=== PATIENT | male | born 1960 | race Two or more races ===

== ENCOUNTER → 2016-05-01 | Outpatient (CLI) | payer OTHER ==
[~2016-05-01] MED LIST: READI-CAT 2 (BARIUM SULF)(VANILLA SMOOTHIE) 450ML ONE
== END | disposition home or self-care (01) ==
LOC: Rad HDHVI 15:12
PROVIDERS: ATTEND Internal Medicine Cardiovascular Disease
DX: K80.20 Calculus of gallbladder without cholecystitis without obstruction (principal); K40.20 Bilateral inguinal hernia, without obstruction or gangrene, not specified as recurrent; K42.9 Umbilical hernia without obstruction or gangrene; I70.8 Atherosclerosis of other arteries; N40.0 Benign prostatic hyperplasia without lower urinary tract symptoms
CPT/HCPCS: 74176

== ENCOUNTER 2016-10-17 10:28 | Emergency (ER) | payer OTHER ==
[~2016-10-17] VITALS: Ht 170.2 cm; Wt 90.7 kg
[2016-10-17] MEDS ORDERED: IOHEXOL 300 MG/ML 100ML BOTTLE IJ ONE (12:23)
[2016-10-17] MEDS ORDERED: KETOROLAC TROMETH 30 MG/ML 1ML VIAL IV ONE (12:30)
[2016-10-17] MEDS: PROMETHAZINE HCL 25 MG/ML 1ML IV PRN ×2 (12:35→16:23)
[2016-10-17 13:12] LABS: Basophils # (auto) 0 uL; Basophils % (auto) 0.5 % (0.0-2.0); CONDITION Y; Eosinophils # (auto) 0.1 uL; Eosinophils % (auto) 1.2 % (0.0-7.0); Hematocrit 37.5 % (41.0-53.0); Hemoglobin 12.9 g/dL (13.5-17.5); Lymphocytes # (auto) 1.1 uL; Lymphocytes % (auto) 13.8 % (10.0-50.0); Mean Corpuscular Hemoglobin 30.3 pg (28.0-32.0); Mean Corpuscular Hgb Conc. 34.4 g/dL (32.0-36.0); Mean Corpuscular Volume 88.1 fL (80.0-100.0); Mean Platelet Volume 8.5 fL (7.4-10.4); Monocytes # (auto) 0.6 uL; Monocytes % (auto) 7.3 % (0.0-12.0); Neutrophils # (auto) 6.4 uL; Neutrophils % (auto) 77.2 % (37.0-80.0); Platelet Count (auto) 238 10^3/uL (140-450); Red Cell Distribution Width 14.7 % (11.6-16.0); White Blood Cell 8.3 10^3/uL (4.4-10.8)
[2016-10-17 13:40] LABS: Albumin 3.4 g/dL (3.4-5.0); BUN/Creatinine Ratio 20.2; Magnesium 2.3 mg/dL (1.6-2.6); Potassium 3.6 mmol/L (3.5-5.1)
[2016-10-17 13:42] LABS: Bilirubin, Total 0.5 mg/dL (0.2-1.0)
[2016-10-17 13:56] LABS: Urine Bilirubin Negative (Negative); Urine Blood 2+ /uL (Negative); Urine Color Yellow (Yellow); Urine Glucose Normal (Normal); Urine Ketone Negative (Negative); Urine Mucus FEW (None Seen); Urine Nitrite Negative (Negative); Urine RBC 152 /hpf (0 - 3); Urine Squamous Epithelial Cell FEW /hpf (<5); Urine Urobilinogen Normal (Negative)
[2016-10-17] MEDS ORDERED: cefTRIAXone 1GM/50ML D5W 50 ML IV ONE (15:30)
[2016-10-17 15:52] VITALS: BP 132/97
[2016-10-17] MEDS ORDERED: PROMETHAZINE HCL 25 MG/ML 1ML IM ONE (16:15)
[2016-10-17] MEDS ORDERED: NALBUPHINE HCL 10 MG/1ml INJECTION IV ONE (16:15)
== END 2016-10-17 16:25 | disposition short-term general hospital (02) ==
LOC: ER 10:28
DX: K80.20 Calculus of gallbladder without cholecystitis without obstruction (principal); N39.0 Urinary tract infection, site not specified; K66.1 Hemoperitoneum; E78.5 Hyperlipidemia, unspecified; I10 Essential (primary) hypertension; Z90.89 Acquired absence of other organs
CPT/HCPCS: 36415; 71020; 74177; 80053; 81001; 83690; 83735; 84443; 85025; 93005; 96365; 96372; 96375; 99285; J1885; J2300; J2550; Q9967

== ENCOUNTER 2017-01-18 18:51 | Emergency (ER) | payer OTHER ==
[~2017-01-18] VITALS: Ht 167.6 cm; Wt 77.1 kg
[2017-01-18] MEDS ORDERED: cloNIDine HCL 0.1 MG TAB PO ONE (19:15)
[2017-01-18] MEDS ORDERED: MORPHINE SULF INJ 2 MG/ML SYRINGE 1ML ONE (19:33)
[2017-01-18] MEDS ORDERED: ONDANSETRON HCL 4 MG/2 ML VIAL ONE (19:33)
[2017-01-18 19:57] LABS: Basophils # (auto) 0 uL; Basophils % (auto) 0.8 % (0.0-2.0); Eosinophils # (auto) 0.3 uL; Eosinophils % (auto) 5.3 % (0.0-7.0); Hematocrit 41.5 % (41.0-53.0); Hemoglobin 14.5 g/dL (13.5-17.5); Lymphocytes # (auto) 1.6 uL; Lymphocytes % (auto) 29.5 % (10.0-50.0); Mean Corpuscular Hemoglobin 30.4 pg (28.0-32.0); Mean Corpuscular Hgb Conc. 34.9 g/dL (32.0-36.0); Mean Corpuscular Volume 87.1 fL (80.0-100.0); Mean Platelet Volume 8.2 fL (6.9-10.8); Monocytes # (auto) 0.4 uL; Monocytes % (auto) 7.2 % (0.0-12.0); Neutrophils % (auto) 57.2 % (37.0-80.0); Nucleated Red Blood Cells % 0.1 %; Platelet Count (auto) 225 10^3/uL (140-450); Red Cell Distribution Width 14.2 % (11.8-14.3); White Blood Cell 5.3 10^3/uL (4.4-10.8)
[2017-01-18 20:00] LABS: Albumin 3.5 g/dL (3.4-5.0); Anion Gap 6 (5-15); Aspartate Aminotransferase 10 U/L (15-37); BUN/Creatinine Ratio 15.2; Blood Urea Nitrogen 15 mg/dL (7-18); Calcium 8.3 mg/dL (8.5-10.1); Carbon Dioxide 26 mmol/L (21-32); Chloride 108 mmol/L (98-107); GFR African American 101 mL/min; GFR Non-African American 83 mL/min; Glucose 99 mg/dL (74-106); Magnesium 2.1 mg/dL (1.6-2.6); Potassium 3.6 mmol/L (3.5-5.1); Sodium 140 mmol/L (136-145)
[2017-01-18] MEDS ORDERED: ONDANSETRON HCL 4 MG/2 ML VIAL IV ONE (20:00)
[2017-01-18] MEDS ORDERED: MORPHINE SULF INJ 2 MG/ML SYRINGE 1ML IV ONE (20:00)
[2017-01-18 20:05] LABS: Alkaline Phosphatase 69 U/L (45-117); Bilirubin, Total 0.3 mg/dL (0.2-1.0); Total Protein 6.7 g/dL (6.4-8.2)
[2017-01-18 20:34] LABS: B-Type Natriuretic Peptide 29.33 pg/mL (0-100)
[2017-01-18 20:41] LABS: Temperature: 22.4 C (20.0-25.0)
[2017-01-18 23:56] VITALS: BP 147/97
== END 2017-01-18 23:25 | disposition home or self-care (01) ==
LOC: ER 18:54
DX: R07.89 Other chest pain (principal); M47.892 Other spondylosis, cervical region; G45.9 Transient cerebral ischemic attack, unspecified; I25.2 Old myocardial infarction; I10 Essential (primary) hypertension; E78.5 Hyperlipidemia, unspecified; Z90.89 Acquired absence of other organs; Z98.61 Coronary angioplasty status
CPT/HCPCS: 36415; 71010; 72125; 73200; 80053; 83735; 83880; 84443; 84484; 85025; 93005; 96374; 96375; 99285; J2270; J2405

== ENCOUNTER → 2017-04-10 | Outpatient (CLI) | payer OTHER ==
[~2017-04-10] VITALS: Ht 170.2 cm; Wt 95.3 kg
== END | disposition home or self-care (01) ==
LOC: Rad HDHVI 10:09
PROVIDERS: ATTEND Internal Medicine Cardiovascular Disease
DX: I10 Essential (primary) hypertension (principal); E78.00 Pure hypercholesterolemia, unspecified; I62.9 Nontraumatic intracranial hemorrhage, unspecified; I21.9 Acute myocardial infarction, unspecified; R42 Dizziness and giddiness; M75.52 Bursitis of left shoulder
CPT/HCPCS: 78452; 93017; 96374; A9500

== ENCOUNTER → 2017-05-07 | Outpatient (CLI) | payer OTHER | END | disposition home or self-care (01) | LOC: Rad HDHVI 13:54 | PROVIDERS: ATTEND Internal Medicine Cardiovascular Disease | DX: I67.2 Cerebral atherosclerosis (principal); I67.82 Cerebral ischemia | CPT/HCPCS: 70450 ==

== ENCOUNTER → 2017-06-12 | Outpatient (CLI) | payer OTHER ==
[~2017-06-12] VITALS: Ht 30.5 cm; Wt 95.3 kg
[~2017-06-12] MED LIST changes: +ASPI-498 PO; +BENA40TA7 PO; +CLON0.1T PO; +HYDR-4683 PO; +LABE200T18 PO; -READI-CAT 2 (BARIUM SULF)(VANILLA SMOOTHIE) 450ML ONE; +SIMV-13 PO; +TAMS0.4C36 PO; +cloNIDine HCL 0.1 MG TAB ONE; +cloNIDine HCL 0.1 MG TAB PO ONE
[2017-06-12 08:50] VITALS: BP 151/107
[2017-06-12 10:15] VITALS: BP 142/97
[2017-06-12 12:15] LABS: Basophils # (auto) 0.1 uL; Basophils % (auto) 1.2 % (0.0-2.0); Eosinophils # (auto) 0 uL; Eosinophils % (auto) 0.7 % (0.0-7.0); Hematocrit 43.1 % (41.0-53.0); Hemoglobin 14.5 g/dL (13.5-17.5); Lymphocytes # (auto) 1.1 uL; Lymphocytes % (auto) 17.1 % (10.0-50.0); Mean Corpuscular Hemoglobin 29.9 pg (28.0-32.0); Mean Corpuscular Hgb Conc. 33.7 g/dL (32.0-36.0); Mean Corpuscular Volume 88.5 fL (80.0-100.0); Monocytes # (auto) 0.4 uL; Monocytes % (auto) 6.6 % (0.0-12.0); Neutrophils # (auto) 4.8 uL; Neutrophils % (auto) 74.4 % (37.0-80.0); Nucleated Red Blood Cells % 0.3 %; Platelet Count (auto) 213 10^3/uL (140-450); Red Blood Cells 4.87 10^6/uL (4.5-5.90); Red Cell Distribution Width 14.4 % (11.8-14.3); White Blood Cell 6.4 10^3/uL (4.4-10.8)
[2017-06-12 12:30] LABS: Calcium 8.4 mg/dL (8.5-10.1); INR 0.95 (0.9-1.15); Partial Thromboplastin Time 26.6 sec (22.64-33.71); Potassium 3.8 mmol/L (3.5-5.1); Prothrombin Time 10.4 sec (9.37-12.3)
== END | disposition home or self-care (01) ==
LOC: Rad HDHVI 08:38
PROVIDERS: ATTEND Internal Medicine Cardiovascular Disease
DX: Z01.818 Encounter for other preprocedural examination (principal); I10 Essential (primary) hypertension; E78.5 Hyperlipidemia, unspecified; E78.00 Pure hypercholesterolemia, unspecified
CPT/HCPCS: 36415; 71046; 80048; 85025; 85610; 85730; 93005; G0463

== ENCOUNTER 2017-06-18 11:24 | Day surgery (SDC) | payer OTHER ==
[~2017-06-18] VITALS: Ht 170.2 cm; Wt 95.4 kg
[~2017-06-18 11:24] MED LIST changes: -cloNIDine HCL 0.1 MG TAB ONE; -cloNIDine HCL 0.1 MG TAB PO ONE
[2017-06-18] MEDS ORDERED: IOHEXOL 350 MG/ML 100ML IJ ONE ×2 (12:07→13:32)
[2017-06-18] MEDS ORDERED: LIDOCAINE 2%HCL (LOCAL ANESTH.) INJ 20ML MDV ONE ×2 (12:07→13:33)
[2017-06-18] MEDS ORDERED: ANGIOMAX 250 MG VIAL IV ONE (13:06)
[2017-06-18] MEDS ORDERED: fentaNYL CITRATE 100 MCG/2 ML VL ONE (13:07)
[2017-06-18] MEDS ORDERED: SODIUM CHL 0.9% 0 ML ONE (13:07)
[2017-06-18] MEDS ORDERED: MIDAZOLAM HCL 1MG/1ML-2 ML VIAL ONE (13:07)
== END 2017-06-18 18:10 | disposition home or self-care (01) ==
LOC: CATH 11:24
PROVIDERS: ATTEND Internal Medicine Cardiovascular Disease
DX: I25.10 Atherosclerotic heart disease of native coronary artery without angina pectoris (principal); R94.39 Abnormal result of other cardiovascular function study; E66.9 Obesity, unspecified; Z68.32 Body mass index [BMI] 32.0-32.9, adult; I10 Essential (primary) hypertension; I25.2 Old myocardial infarction; Z87.891 Personal history of nicotine dependence
CPT/HCPCS: 93458; C1760; C1894; J1644; J2250; J3010; J7030; Q9967; 99152

== ENCOUNTER → 2018-12-29 | Outpatient (CLI) | payer OTHER ==
[~2018-12-29] MED LIST changes: -HYDR-4683 PO; +HYDR-4833 PO
== END | disposition home or self-care (01) ==
LOC: Rad HDHVI 13:44
PROVIDERS: ATTEND Internal Medicine Cardiovascular Disease
DX: I20.0 Unstable angina (principal); R42 Dizziness and giddiness; I10 Essential (primary) hypertension; I25.2 Old myocardial infarction; E78.5 Hyperlipidemia, unspecified; M50.30 Other cervical disc degeneration, unspecified cervical region; Z98.61 Coronary angioplasty status
CPT/HCPCS: 93306

== ENCOUNTER → 2019-06-29 | Outpatient (CLI) | payer OTHER ==
[~2019-06-29] MED LIST changes: +ATOR40TA52 PO; +CLOP75TA41 PO; +LISI-706 PO; +NAPR220C PO
[2019-06-29 08:15] VITALS: BP 128/88
[2019-06-29 08:52] VITALS: BP 136/86
[2019-06-29 12:01] LABS: Basophils # (auto) 0.1 10 ^3/uL (0-0.2); Basophils % (auto) 1.4 % (0.0-2.0); Eosinophils # (auto) 0.3 10 ^3/uL (0-0.8); Eosinophils % (auto) 7.2 % (0.0-7.0); Hematocrit 42.8 % (41.0-53.0); Hemoglobin 14.4 g/dL (13.5-17.5); Lymphocytes % (auto) 24.6 % (10.0-50.0); Mean Corpuscular Hemoglobin 29.8 pg (28.0-32.0); Mean Corpuscular Hgb Conc. 33.7 g/dL (32.0-36.0); Mean Corpuscular Volume 88.4 fL (80.0-100.0); Monocytes # (auto) 0.3 10 ^3/uL (0-1.3); Monocytes % (auto) 8.2 % (0.0-12.0); Neutrophils # (auto) 2.4 10 ^3/uL (1.6-8.6); Neutrophils % (auto) 58.6 % (37.0-80.0); Nucleated Red Blood Cells % 0.4 %; Platelet Count (auto) 231 10^3/uL (140-450); Red Blood Cells 4.84 10^6/uL (4.5-5.90); Red Cell Distribution Width 14.5 % (11.8-14.3); White Blood Cell 4.2 10^3/uL (4.4-10.8)
[2019-06-29 12:08] LABS: Calcium 8.8 mg/dL (8.5-10.1); INR 0.98 (0.9-1.15); Partial Thromboplastin Time 26.3 sec (23.64-32.05); Potassium 3.5 mmol/L (3.5-5.1)
== END | disposition home or self-care (01) ==
LOC: Rad HDHVI 08:06
PROVIDERS: ATTEND Internal Medicine Cardiovascular Disease
DX: Z01.812 Encounter for preprocedural laboratory examination (principal); I70.0 Atherosclerosis of aorta; I20.0 Unstable angina; I25.10 Atherosclerotic heart disease of native coronary artery without angina pectoris; I21.3 ST elevation (STEMI) myocardial infarction of unspecified site
CPT/HCPCS: 36415; 71046; 80048; 85025; 85610; 85730; 93005; G0463

== ENCOUNTER 2019-07-02 08:45 | Inpatient (IN) | payer OTHER ==
[~2019-07-02] VITALS: Ht 170.2 cm; Wt 104.0 kg
[~2019-07-02 08:45] MED LIST changes: -ASPI-498 PO; -BENA40TA7 PO; -HYDR-4833 PO; -SIMV-13 PO
[2019-07-02] MEDS ORDERED: fentaNYL CITRATE 100 MCG/2 ML VL ONE ×2 (10:07→11:30)
[2019-07-02] MEDS ORDERED: ANGIOMAX 250 MG VIAL IV ONE (10:07)
[2019-07-02] MEDS ORDERED: MIDAZOLAM HCL 1MG/1ML-2 ML VIAL ONE (10:08)
[2019-07-02] MEDS ORDERED: SODIUM CHL 0.9% 50 ML ONE (10:08)
[2019-07-02] MEDS ORDERED: IOHEXOL 350 MG/ML 100ML IJ ONE (10:08)
[2019-07-02] MEDS ORDERED: LIDOCAINE 2%HCL (LOCAL ANESTH.) INJ 20ML MDV ONE (10:08)
[2019-07-02] MEDS ORDERED: ASPirin 325 MG TAB ONE (11:19)
[2019-07-02] MEDS ORDERED: CLOPIDOGREL BISULFATE 75 MG TAB ONE (11:19)
[2019-07-02] MEDS ORDERED: cloNIDine HCL 0.1 MG TAB PO PRN (12:30)
[2019-07-02] MEDS ORDERED: ONDANSETRON HCL 4 MG/2 ML VIAL IV PRN (12:30)
[2019-07-02] MEDS ORDERED: HYDROcodone-ACET 5/325MG TAB PO PRN (12:30)
[2019-07-02] MEDS ORDERED: ACETAMINOPHEN 500 MG TAB PO PRN (12:30)
[2019-07-02] MEDS ORDERED: MORPHINE SULF INJ 2 MG/ML SYRINGE 1ML IV PRN (12:30)
[2019-07-02] MEDS ORDERED: NITROGLYCERIN 0.4 MG SL TAB SL PRN (12:30)
[2019-07-02 14:30] VITALS: BP 137/80
--- NOTE | 2019-07-02 15:45 | NUR ---
Patient Admitted Received the patient from the Petroleum Inspector today at approximately 1315hrs. The patient is S/P Left Heart Cath, site at the Right groin. The patient arrived on a gurney lying flat the whole time. Received the report on the patient, he was do to sit up at 1330hrs. Check the groin before and after sitting him up, dressing clean, dry, intact. No pain noted. Completed the admission assessment. Will continue to monitor.
[2019-07-02 16:59] VITALS: BP 132/73
[2019-07-02] MEDS ORDERED: TAMSULOSIN HYDROCHLORIDE 0.4 MG CAP PO SCH (18:00)
--- NOTE | 2019-07-02 19:30 | NUR ---
Opening Shift Note Assumed care of patient, awake and alert x4. No S/S of distress/SOB or pain. Dressing to right groin is C/D/I, area is soft, no S/S of hematoma noted. Instructed on POC and to call for assist PRN. All questions and concerns answered. Call light is within reach, side rails up x2, bed is in the lowest position, will continue to monitor for changes Q1hr and PRN.
[2019-07-02 22:00] VITALS: BP 135/86
[2019-07-02] MEDS ORDERED: ATORVASTATIN 20 MG TAB PO SCH (22:00)
[2019-07-02] MEDS: LABETALOL HCL 200 MG TAB PO SCH (22:32)
[2019-07-03 05:00] VITALS: BP 130/76
--- NOTE | 2019-07-03 07:30 | NUR ---
Opening Shift Note Assumed care of patient, awake and alert. No S/S of distress/SOB or pain. Instructed on POC and to call for assist PRN, will continue to monitor for changes Q1hr and PRN.
[2019-07-03 08:00] VITALS: BP 137/77
[2019-07-03 08:36] VITALS: BP 137/77
[2019-07-03 09:41] VITALS: BP 128/80
[2019-07-03] MEDS: LABETALOL HCL 200 MG TAB PO SCH (09:54)
[2019-07-03] MEDS ORDERED: CLOPIDOGREL BISULFATE 75 MG TAB PO SCH (10:00)
[2019-07-03] MEDS ORDERED: PATIENTS OWN MEDICATION (Lisinopril & Hydrochlorothiazi (Zestoretic 20-12.5 mg) 1 TAB) PO SCH (10:00)
[2019-07-03] MEDS ORDERED: LISINOPRIL 20 MG TAB PO SCH (10:00)
[2019-07-03] MEDS ORDERED: ASPirin-EC 81 mg tab PO SCH (10:00)
[2019-07-03] MEDS ORDERED: HCTZ 25 MG TAB PO SCH (10:00)
--- NOTE | 2019-07-03 12:15 | NUR ---
Discharge instructions given as ordered. Encourage to follow up with PMD as instructed. All questions and concerns addressed. Patient verbalized understanding. Home medications held in Pharmacy returned to patient. IV removed with catheter intact, pressure dressing applied. Telemetry unit returned to ICU. Patient ambulated to vehicle with all personal belongings. No distress noted at time of departure.
[2019-07-03 12:47] VITALS: BP 155/94
== END 2019-07-03 12:15 | disposition home or self-care (01) | DRG 247 ==
LOC: CATH 08:45 → TELE-CENTR 08:46
PROVIDERS: ADMIT Internal Medicine Cardiovascular Disease; ATTEND Internal Medicine Cardiovascular Disease
PROC: 027034Z Dilation of Coronary Artery, One Artery with Drug-eluting Intraluminal Device, Percutaneous Approach (ICD-10-PCS; principal; 2019-07-02)
PROC: B240ZZ3 Ultrasonography of Single Coronary Artery, Intravascular (ICD-10-PCS; 2019-07-02)
PROC: 4A023N7 Measurement of Cardiac Sampling and Pressure, Left Heart, Percutaneous Approach (ICD-10-PCS; 2019-07-02)
PROC: B211YZZ Fluoroscopy of Multiple Coronary Arteries using Other Contrast (ICD-10-PCS; 2019-07-02)
PROC: B215YZZ Fluoroscopy of Left Heart using Other Contrast (ICD-10-PCS; 2019-07-02)
DX: I25.10 Atherosclerotic heart disease of native coronary artery without angina pectoris (principal); E78.5 Hyperlipidemia, unspecified; I10 Essential (primary) hypertension; Z82.3 Family history of stroke; Z98.890 Other specified postprocedural states; I25.2 Old myocardial infarction; Z82.49 Family history of ischemic heart disease and other diseases of the circulatory system; Z11.59 Encounter for screening for other viral diseases
CPT/HCPCS: 87635; 92928; 92978; 93005; 93458; 99152; 99153; C1874; G0378; J2250

== ENCOUNTER → 2020-01-06 | Outpatient (CLI) | payer OTHER ==
[2020-01-06 12:05] LABS: Basophils # (auto) 0.1 10 ^3/uL (0-0.2); Eosinophils # (auto) 0.1 10 ^3/uL (0-0.8); Eosinophils % (auto) 2.8 % (0.0-7.0); Hematocrit 39.2 % (41.0-53.0); Hemoglobin 13.4 g/dL (13.5-17.5); Lymphocytes # (auto) 1.1 10 ^3/uL (0.4-5.4); Mean Corpuscular Hemoglobin 29.8 pg (28.0-32.0); Mean Corpuscular Hgb Conc. 34.1 g/dL (32.0-36.0); Mean Corpuscular Volume 87.4 fL (80.0-100.0); Monocytes # (auto) 0.4 10 ^3/uL (0-1.3); Neutrophils # (auto) 3.4 10 ^3/uL (1.6-8.6); Neutrophils % (auto) 67.2 % (37.0-80.0); Nucleated Red Blood Cells % 0.1 %; Platelet Count (auto) 246 10^3/uL (140-450); Red Blood Cells 4.49 10^6/uL (4.5-5.90); Red Cell Distribution Width 15.2 % (11.8-14.3)
[2020-01-06 12:10] LABS: Urine Blood Negative /uL (Negative); Urine Specific Gravity 1.019 (1.001-1.035)
[2020-01-06 12:24] LABS: Albumin 3.9 g/dL (3.4-5.0); Potassium 3.8 mmol/L (3.5-5.1)
[2020-01-06 12:25] LABS: Free T4 (Free Thyroxine) 0.91 ng/dL (0.89-1.76); Prostate Specific Antigen 2.59 ng/mL (0.0-4.0)
[2020-01-06 12:30] LABS: BUN/Creatinine Ratio 14.4; Bilirubin, Total 0.7 mg/dL (0.2-1.0); Total Protein 6.6 g/dL (6.4-8.2)
== END | disposition home or self-care (01) ==
LOC: LAB 08:18
PROVIDERS: ATTEND Internal Medicine Cardiovascular Disease
DX: C61 Malignant neoplasm of prostate (principal); D51.3 Other dietary vitamin B12 deficiency anemia; I10 Essential (primary) hypertension; E11.9 Type 2 diabetes mellitus without complications; E55.9 Vitamin D deficiency, unspecified; D64.9 Anemia, unspecified; R00.2 Palpitations; R53.1 Weakness; R30.0 Dysuria
CPT/HCPCS: 36415; 80053; 80061; 81003; 82306; 82607; 83036; 84153; 84403; 84439; 84443; 85025

== ENCOUNTER → 2020-01-20 | Outpatient (CLI) | payer OTHER | END | disposition home or self-care (01) | LOC: XY 07:17 | PROVIDERS: ATTEND Internal Medicine Gastroenterology | DX: R68.81 Early satiety (principal); R10.9 Unspecified abdominal pain | CPT/HCPCS: 78264; A9541 ==

== ENCOUNTER → 2021-01-20 | Outpatient (CLI) | payer OTHER ==
[~2021-01-20] MED LIST changes: -CLOP75TA41 PO; +CLOP75TA70 PO; -LABE200T18 PO; +LABE200T7 PO
== END | disposition home or self-care (01) ==
LOC: Rad HDHVI 08:07
PROVIDERS: ATTEND Internal Medicine Cardiovascular Disease
DX: E78.5 Hyperlipidemia, unspecified (principal); R06.02 Shortness of breath
CPT/HCPCS: 93306

== ENCOUNTER → 2021-02-02 | Outpatient (CLI) | payer OTHER ==
[~2021-02-02] VITALS: Ht 170.2 cm; Wt 97.5 kg
== END | disposition home or self-care (01) ==
LOC: Rad HDHVI 08:01
PROVIDERS: ATTEND Internal Medicine Cardiovascular Disease
DX: I25.10 Atherosclerotic heart disease of native coronary artery without angina pectoris (principal); I10 Essential (primary) hypertension; R00.2 Palpitations; E78.5 Hyperlipidemia, unspecified; R06.02 Shortness of breath; I25.2 Old myocardial infarction
CPT/HCPCS: 78452; 93017; 96374; A9500

== ENCOUNTER → 2021-02-20 | Outpatient (CLI) | payer OTHER ==
[2021-02-20 11:28] LABS: Basophils # (auto) 0.1 10 ^3/uL (0-0.2); Basophils % (auto) 0.9 % (0.0-2.0); Eosinophils # (auto) 0.1 10 ^3/uL (0-0.8); Eosinophils % (auto) 2.1 % (0.0-7.0); Hematocrit 44.2 % (41.0-53.0); Lymphocytes # (auto) 0.8 10 ^3/uL (0.4-5.4); Lymphocytes % (auto) 14.6 % (10.0-50.0); Mean Corpuscular Hemoglobin 29.1 pg (28.0-32.0); Mean Corpuscular Volume 85.6 fL (80.0-100.0); Monocytes # (auto) 0.4 10 ^3/uL (0-1.3); Neutrophils # (auto) 4.1 10 ^3/uL (1.6-8.6); Neutrophils % (auto) 74.4 % (37.0-80.0); Nucleated Red Blood Cells % 0.1 %; Red Blood Cells 5.17 10^6/uL (4.5-5.90); Red Cell Distribution Width 14.4 % (11.8-14.3); White Blood Cell 5.6 10^3/uL (4.4-10.8)
[2021-02-20 11:30] LABS: Urine Blood Negative /uL (Negative); Urine Specific Gravity 1.024 (1.001-1.035)
[2021-02-20 11:41] LABS: Albumin 4.1 g/dL (3.4-5.0); Potassium 3.8 mmol/L (3.5-5.1)
[2021-02-20 11:47] LABS: BUN/Creatinine Ratio 15.2; Bilirubin, Total 0.7 mg/dL (0.2-1.0)
[2021-02-20 11:49] LABS: Free T4 (Free Thyroxine) 1.18 ng/dL (0.89-1.76); Prostate Specific Antigen 2.36 ng/mL (0.0-4.0)
== END | disposition home or self-care (01) ==
LOC: LAB 09:08
PROVIDERS: ATTEND Internal Medicine Cardiovascular Disease
DX: E11.9 Type 2 diabetes mellitus without complications (principal); D51.3 Other dietary vitamin B12 deficiency anemia; D64.9 Anemia, unspecified; E55.9 Vitamin D deficiency, unspecified; I10 Essential (primary) hypertension; R00.2 Palpitations; R53.1 Weakness; R30.0 Dysuria; C61 Malignant neoplasm of prostate
CPT/HCPCS: 36415; 80053; 80061; 81003; 82306; 82607; 83036; 84153; 84403; 84439; 84443; 85025

== ENCOUNTER → 2021-09-29 | Outpatient (CLI) | payer OTHER ==
[~2021-09-29] MED LIST changes: +READI-CAT 2 (BARIUM SULF)(VANILLA SMOOTHIE) 450ML ONE
== END | disposition home or self-care (01) ==
LOC: Rad HDHVI 09:36
PROVIDERS: ATTEND Internal Medicine Cardiovascular Disease
DX: M25.512 Pain in left shoulder (principal); I20.9 Angina pectoris, unspecified; Z95.5 Presence of coronary angioplasty implant and graft; Z82.49 Family history of ischemic heart disease and other diseases of the circulatory system
CPT/HCPCS: 73200

== ENCOUNTER → 2022-01-01 | Outpatient (CLI) | payer OTHER ==
[~2022-01-01] MED LIST changes: -READI-CAT 2 (BARIUM SULF)(VANILLA SMOOTHIE) 450ML ONE
[2022-01-01 16:37] LABS: Basophils # (auto) 0.1 10 ^3/uL (0-0.2); Eosinophils # (auto) 0.3 10 ^3/uL (0-0.8); Eosinophils % (auto) 5.3 % (0.0-7.0); Hematocrit 43.1 % (41.0-53.0); Hemoglobin 14.7 g/dL (13.5-17.5); Lymphocytes # (auto) 1.4 10 ^3/uL (0.4-5.4); Lymphocytes % (auto) 24.1 % (10.0-50.0); Mean Corpuscular Hemoglobin 29.3 pg (28.0-32.0); Mean Corpuscular Hgb Conc. 34.2 g/dL (32.0-36.0); Mean Corpuscular Volume 85.9 fL (80.0-100.0); Monocytes # (auto) 0.4 10 ^3/uL (0-1.3); Monocytes % (auto) 7.7 % (0.0-12.0); Neutrophils # (auto) 3.5 10 ^3/uL (1.6-8.6); Neutrophils % (auto) 61.9 % (37.0-80.0); Nucleated Red Blood Cells % 0.1 %; Red Blood Cells 5.02 10^6/uL (4.5-5.90); Red Cell Distribution Width 14.7 % (11.8-14.3); White Blood Cell 5.6 10^3/uL (4.4-10.8)
== END | disposition home or self-care (01) ==
LOC: LAB 15:28
PROVIDERS: ATTEND Internal Medicine Cardiovascular Disease
DX: D64.9 Anemia, unspecified (principal)
CPT/HCPCS: 36415; 85025

== ENCOUNTER → 2022-05-25 | Outpatient (CLI) | payer OTHER ==
[~2022-05-25] VITALS: Ht 170.2 cm; Wt 97.5 kg
== END | disposition home or self-care (01) ==
LOC: Rad HDHVI 08:09
PROVIDERS: ATTEND Internal Medicine Cardiovascular Disease
DX: Z01.810 Encounter for preprocedural cardiovascular examination (principal); I11.0 Hypertensive heart disease with heart failure; I50.23 Acute on chronic systolic (congestive) heart failure; I25.10 Atherosclerotic heart disease of native coronary artery without angina pectoris; I25.2 Old myocardial infarction; R06.02 Shortness of breath; E78.00 Pure hypercholesterolemia, unspecified
CPT/HCPCS: 78452; 93017; 96374; A9500

== ENCOUNTER → 2022-07-06 | Outpatient (CLI) | payer OTHER | END | disposition home or self-care (01) | LOC: Rad HDHVI 10:13 | PROVIDERS: ATTEND Internal Medicine Cardiovascular Disease | DX: I11.9 Hypertensive heart disease without heart failure (principal); E78.5 Hyperlipidemia, unspecified | CPT/HCPCS: 93306 ==

== ENCOUNTER → 2022-09-19 | Outpatient (CLI) | payer OTHER | END | disposition home or self-care (01) | LOC: Rad HDHVI 13:29 | PROVIDERS: ATTEND Internal Medicine Cardiovascular Disease | DX: M16.11 Unilateral primary osteoarthritis, right hip (principal); M25.851 Other specified joint disorders, right hip; M25.751 Osteophyte, right hip; M25.551 Pain in right hip ==

== ENCOUNTER → 2022-10-29 | Outpatient (CLI) | payer OTHER ==
[~2022-10-29] MED LIST changes: +ASPI-543 PO; +HYDR-4902 PO; +PANT40TA2 PO; +SACU1TAB7 PO; +TRIA37.587 PO
[2022-10-29 13:35] VITALS: BP 110/78; PULSE 75; RESP 16; O2SAT 96
[2022-10-29 13:59] VITALS: BP 109/74; PULSE 72; RESP 16; O2SAT 96
== END | disposition home or self-care (01) ==
LOC: Rad HDHVI 13:20
PROVIDERS: ATTEND Internal Medicine Cardiovascular Disease
DX: Z01.818 Encounter for other preprocedural examination (principal); I65.22 Occlusion and stenosis of left carotid artery; I63.9 Cerebral infarction, unspecified; R06.02 Shortness of breath; I51.7 Cardiomegaly
CPT/HCPCS: 71046; 93005; G0463

== ENCOUNTER 2022-11-01 08:12 | Inpatient (IN) | payer OTHER ==
[2022-10-29 14:46] LABS: Basophils # (auto) 0.1 10 ^3/uL (0-0.2); Eosinophils # (auto) 0.3 10 ^3/uL (0-0.8); Eosinophils % (auto) 4.8 % (0.0-7.0); Hematocrit 41.3 % (41.0-53.0); Hemoglobin 14.2 g/dL (13.5-17.5); Lymphocytes # (auto) 1.3 10 ^3/uL (0.4-5.4); Lymphocytes % (auto) 22.1 % (10.0-50.0); Mean Corpuscular Hemoglobin 29.6 pg (28.0-32.0); Mean Corpuscular Hgb Conc. 34.4 g/dL (32.0-36.0); Mean Corpuscular Volume 86.2 fL (80.0-100.0); Monocytes # (auto) 0.4 10 ^3/uL (0-1.3); Monocytes % (auto) 7.2 % (0.0-12.0); Neutrophils # (auto) 3.9 10 ^3/uL (1.6-8.6); Neutrophils % (auto) 64.9 % (37.0-80.0); Nucleated Red Blood Cells % 0.2 %; Red Cell Distribution Width 14.2 % (11.8-14.3)
[2022-10-29 14:58] LABS: Chloride 108 mmol/L (98-107); Potassium 3.7 mmol/L (3.5-5.1); Sodium 139 mmol/L (136-145)
[2022-10-29 14:59] LABS: Anion Gap 3.8 (5-15); Calcium 9.4 mg/dL (8.7-10.4); Carbon Dioxide 27.2 mmol/L (20-30)
[2022-10-29 15:04] LABS: BUN/Creatinine Ratio 14.2 (10.0-20.0); Blood Urea Nitrogen 16 mg/dL (9-23); Glucose 125 mg/dL (74-106)
[2022-10-29 15:22] LABS: Partial Thromboplastin Time 26.8 SEC (24.5-34.5); Prothrombin Time 10.5 sec (9.3-11.8)
[~2022-11-01] VITALS: Ht 170.2 cm; Wt 104.2 kg
[2022-11-01] VITALS (17 sets, daily range): BP systolic 98–128; BP diastolic 54–83; PULSE 61–76; RESP 12–20; TEMP 97.2–98.2; O2SAT 94–99
[~2022-11-01 08:12] MED LIST changes: -LISI-706 PO; -NAPR220C PO
[2022-11-01] MEDS ORDERED: IOHEXOL 350 MG/ML 100ML IJ ONE ×2 (09:59→11:55)
[2022-11-01] MEDS ORDERED: LIDOCAINE 2%HCL (LOCAL ANESTH.) INJ 20ML MDV ONE ×2 (09:59→11:55)
[2022-11-01] MEDS ORDERED: GLYCOPYRROLATE 0.2 MG/ML 1ML VIAL ONE ×3 (11:47→12:25)
[2022-11-01] MEDS ORDERED: SODIUM CHL 0.9% 50 ML ONE (12:00)
[2022-11-01] MEDS ORDERED: ANGIOMAX 250 MG VIAL IV ONE (12:00)
[2022-11-01] MEDS ORDERED: HEPARIN 1,000 UNITS/ml 1ML VIAL ONE (12:02)
[2022-11-01] MEDS ORDERED: MIDAZOLAM HCL 2MG/2ML 2ml VIAL (1mg/ml) ONE (12:07)
[2022-11-01] MEDS ORDERED: ATROPINE SULF 1 MG/10ml SYR ONE (12:08)
[2022-11-01] MEDS ORDERED: PHENYLEPHRINE HCL 10 MG/ML VL ONE (12:10)
[2022-11-01] MEDS ORDERED: DOPamine 1600MCG/ML D5W 0 ML IV ONE (12:16)
[2022-11-01] MEDS ORDERED: MORPHINE SULFATE INJ 2 MG/ml SYRG IV PRN (14:00)
[2022-11-01] MEDS ORDERED: cloNIDine HCL 0.1 MG TAB PO PRN (14:00)
[2022-11-01] MEDS ORDERED: HYDROcodone-ACET 5/325MG TAB PO PRN (14:00)
[2022-11-01] MEDS ORDERED: NITROGLYCERIN 0.4 MG SL TAB SL PRN (14:00)
[2022-11-01] MEDS: SODIUM CHLOR 0.9% PF (SALINE LOCK) 10ML VIAL/SYR IV SCH ×2 (14:00→23:09)
[2022-11-01] MEDS ORDERED: PNEUMOCOCCAL VACC POLYS 25 MCG/0.5 ML VIAL IM ONE (16:15)
[2022-11-01] MEDS ORDERED: TAMSULOSIN HYDROCHLORIDE 0.4 MG CAP PO SCH (18:00)
[2022-11-01] MEDS: LABETALOL HCL 200 MG TAB PO SCH (22:00)
[2022-11-01] MEDS ORDERED: SACUBITRIL-VALSARTAN 24mg/26mg TAB PO SCH (22:00)
[2022-11-01] MEDS: SACUBITRIL-VALSARTAN 24mg/26mg TAB PO SCH (22:00)
[2022-11-02 05:00] VITALS: BP 97/54; PULSE 71; RESP 14; TEMP 98.1; O2SAT 95
[2022-11-02] MEDS: SODIUM CHLOR 0.9% PF (SALINE LOCK) 10ML VIAL/SYR IV SCH ×2 (05:26→15:10)
[2022-11-02 08:00] VITALS: BP 102/63; PULSE 74; PULSE 75; RESP 16; TEMP 98.3; O2SAT 96
[2022-11-02 08:10] VITALS: PULSE 74; RESP 16; O2SAT 96
[2022-11-02] MEDS: LABETALOL HCL 200 MG TAB PO SCH (09:07)
[2022-11-02] MEDS: SACUBITRIL-VALSARTAN 24mg/26mg TAB PO SCH (09:07)
[2022-11-02] MEDS ORDERED: PANTOPRAZOLE 40 MG TAB PO SCH (10:00)
[2022-11-02] MEDS ORDERED: CLOPIDOGREL BISULFATE 75 MG TAB PO SCH (10:00)
[2022-11-02] MEDS ORDERED: ASPirin-EC 81 mg tab PO SCH (10:00)
[2022-11-02] MEDS ORDERED: TRIAMTERENE/HCTZ 37.5/25 MG CAP/TAB PO SCH (10:00)
[2022-11-02 12:00] VITALS: BP 101/71; PULSE 66; RESP 20; TEMP 98.1; O2SAT 97
[2022-11-02 14:07] VITALS: BP 102/63; PULSE 61; TEMP 36.7
[2022-11-02] MEDS ORDERED: ATORVASTATIN 20 MG TAB PO SCH (22:00)
[2022-11-05 12:29] LABS: Hepatitis B Surface Antigen Negative (Negative)
[2022-11-05 12:51] LABS: Hepatitis C Antibody Negative (Negative)
== END 2022-11-02 15:21 | disposition home or self-care (01) | DRG 36 ==
LOC: CATH 08:12 → TELE 14:04 → TELE-WESTW 14:41
PROVIDERS: ADMIT Internal Medicine Cardiovascular Disease; ATTEND Internal Medicine Cardiovascular Disease
PROC: 037K3DZ Dilation of Right Internal Carotid Artery with Intraluminal Device, Percutaneous Approach (ICD-10-PCS; principal; 2022-11-01)
PROC: B3181ZZ Fluoroscopy of Bilateral Internal Carotid Arteries using Low Osmolar Contrast (ICD-10-PCS; 2022-11-01)
PROC: B3151ZZ Fluoroscopy of Bilateral Common Carotid Arteries using Low Osmolar Contrast (ICD-10-PCS; 2022-11-01)
PROC: B31C1ZZ Fluoroscopy of Bilateral External Carotid Arteries using Low Osmolar Contrast (ICD-10-PCS; 2022-11-01)
PROC: B31N1ZZ Fluoroscopy of Other Upper Arteries using Low Osmolar Contrast (ICD-10-PCS; 2022-11-01)
DX: I65.21 Occlusion and stenosis of right carotid artery (principal); I25.10 Atherosclerotic heart disease of native coronary artery without angina pectoris; I10 Essential (primary) hypertension; E78.5 Hyperlipidemia, unspecified; Z87.891 Personal history of nicotine dependence; I25.2 Old myocardial infarction
CPT/HCPCS: 36224; 36415; 37215; 80048; 85025; 85610; 85730; 86803; 87340; 99152; G0378; J2250

== ENCOUNTER → 2023-07-09 | Outpatient (CLI) | payer BC, OTHER ==
[~2023-07-09] VITALS: Ht 170.2 cm; Wt 101.2 kg
[~2023-07-09] MED LIST changes: +ADENOSINE 85 MG in GIVE UN-DILUTED 0 ML IV ONE; +ADENOSINE 90 MG/30 ML INJ IV ONE; -HYDR-4902 PO; +LABE200T33 PO; -LABE200T7 PO
== END | disposition home or self-care (01) ==
LOC: Rad HDHVI 14:18
PROVIDERS: ATTEND Internal Medicine Cardiovascular Disease
DX: I11.9 Hypertensive heart disease without heart failure (principal); E78.00 Pure hypercholesterolemia, unspecified; Z98.62 Peripheral vascular angioplasty status; I63.9 Cerebral infarction, unspecified; I25.2 Old myocardial infarction; I25.10 Atherosclerotic heart disease of native coronary artery without angina pectoris
CPT/HCPCS: 78452; 93005; 96374; 96375; A9500; J0153

== ENCOUNTER → 2023-10-07 | Outpatient (CLI) | payer BC ==
[~2023-10-07] MED LIST changes: -ADENOSINE 85 MG in GIVE UN-DILUTED 0 ML IV ONE; -ADENOSINE 90 MG/30 ML INJ IV ONE; +NAPR220C PO; -TAMS0.4C36 PO; +TAMS0.4C39 PO
[2023-10-07 14:14] VITALS: BP 121/75; PULSE 69; RESP 16; O2SAT 95
[2023-10-07 14:21] VITALS: BP 123/75; PULSE 68; RESP 16; O2SAT 95
== END | disposition home or self-care (01) ==
LOC: Rad HDHVI 14:05
PROVIDERS: ATTEND Internal Medicine Cardiovascular Disease
DX: Z01.818 Encounter for other preprocedural examination (principal)
CPT/HCPCS: 71046; 93005; G0463

== ENCOUNTER 2023-10-10 08:02 | Day surgery (SDC) | payer BC ==
[2023-10-07 16:05] LABS: Basophils # (auto) 0.1 10 ^3/uL (0-0.2); Basophils % (auto) 1.3 % (0.0-2.0); Eosinophils # (auto) 0.3 10 ^3/uL (0-0.8); Eosinophils % (auto) 4.5 % (0.0-7.0); Hematocrit 40.5 % (41.0-53.0); Hemoglobin 13.8 g/dL (13.5-17.5); Lymphocytes # (auto) 1.2 10 ^3/uL (0.4-5.4); Lymphocytes % (auto) 21.5 % (10.0-50.0); Mean Corpuscular Hemoglobin 29.5 pg (28.0-32.0); Mean Corpuscular Volume 86.8 fL (80.0-100.0); Monocytes # (auto) 0.5 10 ^3/uL (0-1.3); Monocytes % (auto) 7.9 % (0.0-12.0); Neutrophils # (auto) 3.7 10 ^3/uL (1.6-8.6); Neutrophils % (auto) 64.8 % (37.0-80.0); Platelet Count (auto) 232 10^3/uL (140-450); Red Blood Cells 4.67 10^6/uL (4.5-5.90); Red Cell Distribution Width 14.4 % (11.8-14.3); White Blood Cell 5.7 10^3/uL (4.4-10.8)
[2023-10-07 16:20] LABS: Chloride 108 mmol/L (98-107); Potassium 4.4 mmol/L (3.5-5.1); Sodium 141 mmol/L (136-145)
[2023-10-07 16:21] LABS: Anion Gap 5 (5-15); Calcium 9.6 mg/dL (8.7-10.4); Carbon Dioxide 28 mmol/L (20-30); INR 0.98 (0.9-1.15); Partial Thromboplastin Time 25.9 SEC (24.5-34.5); Prothrombin Time 10.4 sec (9.3-11.8)
[2023-10-07 16:26] LABS: BUN/Creatinine Ratio 14.4 (10.0-20.0); Blood Urea Nitrogen 17 mg/dL (9-23); Glucose 98 mg/dL (74-106)
[~2023-10-10] VITALS: Ht 170.2 cm; Wt 99.8 kg
[2023-10-10] MEDS ORDERED: IOHEXOL 350 MG/ML 100ML IJ ONE (12:25)
[2023-10-10] MEDS ORDERED: GLYCOPYRROLATE 0.2 MG/ML 1ML VIAL ONE (12:26)
[2023-10-10] MEDS ORDERED: LIDOCAINE 2%HCL (LOCAL ANESTH.) INJ 20ML MDV ONE (12:26)
[2023-10-10] MEDS ORDERED: ANGIOMAX 250 MG VIAL IV ONE (12:26)
[2023-10-10] MEDS ORDERED: PHENYLEPHRINE HCL 10 MG/ML VL ONE (12:27)
[2023-10-10] MEDS ORDERED: SODIUM CHL 0.9% 50 ML ONE (12:27)
[2023-10-10] MEDS ORDERED: fentaNYL CITRATE 100 MCG/2 ML VL ONE (12:43)
[2023-10-10] MEDS ORDERED: MIDAZOLAM HCL 2MG/2ML 2ml VIAL (1mg/ml) ONE (12:43)
[2023-10-10] MEDS ORDERED: NITROGLYCERIN 0.4MG/DOSE SPRAY 4.9GM ONE (13:07)
== END 2023-10-10 15:26 | disposition home or self-care (01) ==
LOC: CATH 08:02
PROVIDERS: ATTEND Internal Medicine Cardiovascular Disease
DX: I65.29 Occlusion and stenosis of unspecified carotid artery (principal); I72.0 Aneurysm of carotid artery; I25.10 Atherosclerotic heart disease of native coronary artery without angina pectoris; Z95.5 Presence of coronary angioplasty implant and graft
CPT/HCPCS: 36140; 36222; 36415; 75716; 80048; 85025; 85610; 85730; 93454; C1760; C1769; C1894; J1644; J2250; J3010; Q9967; 99152

== ENCOUNTER → 2024-03-09 | Outpatient (CLI) | payer BC | END | disposition home or self-care (01) | LOC: Rad HDHVI 08:56 | PROVIDERS: ATTEND Internal Medicine Cardiovascular Disease | DX: R60.0 Localized edema (principal) | CPT/HCPCS: 93970 ==

== ENCOUNTER → 2024-04-06 | Outpatient (CLI) | payer BC ==
[~2024-04-06] MED LIST changes: +HYDR-4798 PO
[2024-04-06 12:00] VITALS: BP 114/73; PULSE 75; RESP 16; O2SAT 96
[2024-04-06 12:19] VITALS: BP 118/79; PULSE 77; RESP 16; O2SAT 96
--- NOTE | 2024-04-06 12:23 | DVH ---
CHEST RADIOGRAPH Indication: Pain Technique: Frontal and lateral view of the chest was obtained Comparison: XY CHEST TWO VIEWS ROUTINE on DOS: 10/07/23, XY CHEST TWO VIEWS ROUTINE on DOS: 10/29/22, C HEST TWO VIEWS ROUTINE on DOS: 06/29/19 FINDINGS: Lines and Tubes: None Lungs: Clear Pleura: No effusion. No pneumothorax. Cardiomediastinal contours: Unremarkable Bones: Unremarkable IMPRESSION: No evidence of acute disease.
== END | disposition home or self-care (01) ==
LOC: Rad HDHVI 12:04
PROVIDERS: ATTEND Internal Medicine Cardiovascular Disease
DX: Z01.818 Encounter for other preprocedural examination (principal); R07.89 Other chest pain
CPT/HCPCS: 71046; 93005; G0463

== ENCOUNTER 2024-04-09 08:01 | Day surgery (SDC) | payer BC ==
[2024-04-06 14:22] LABS: Basophils # (auto) 0 10 ^3/uL (0-0.2); Basophils % (auto) 0.6 % (0.0-2.0); Eosinophils # (auto) 0.1 10 ^3/uL (0-0.8); Eosinophils % (auto) 1.2 % (0.0-7.0); Hematocrit 44.8 % (41.0-53.0); Hemoglobin 14.8 g/dL (13.5-17.5); Lymphocytes # (auto) 1.1 10 ^3/uL (0.4-5.4); Lymphocytes % (auto) 14.5 % (10.0-50.0); Mean Corpuscular Hemoglobin 28.7 pg (28.0-32.0); Monocytes # (auto) 0.5 10 ^3/uL (0-1.3); Neutrophils # (auto) 5.6 10 ^3/uL (1.6-8.6); Neutrophils % (auto) 76.7 % (37.0-80.0); Nucleated Red Blood Cells % 0.1 %; Platelet Count (auto) 280 10^3/uL (140-450); Red Blood Cells 5.16 10^6/uL (4.5-5.90); Red Cell Distribution Width 14.6 % (11.8-14.3); White Blood Cell 7.3 10^3/uL (4.4-10.8)
[2024-04-06 14:40] LABS: INR 0.98 (0.9-1.15); Partial Thromboplastin Time 26.8 SEC (24.5-34.5); Prothrombin Time 10.4 sec (9.3-11.8)
[2024-04-06 15:18] LABS: Alanine Aminotransferase 23 U/L (7-40); Albumin 4.7 g/dL (3.2-4.8); Alkaline Phosphatase 102 U/L (46-116); Anion Gap 6 (5-15); BUN/Creatinine Ratio 20.2 (10.0-20.0); Bilirubin, Total 0.5 mg/dL (0.2-1.0); Blood Urea Nitrogen 21 mg/dL (9-23); Calcium 10.1 mg/dL (8.7-10.4); Carbon Dioxide 28 mmol/L (20-31); Potassium 4.4 mmol/L (3.5-5.1); Sodium 142 mmol/L (136-145); Total Protein 6.3 g/dL (5.7-8.2)
[2024-04-06 15:23] LABS: Aspartate Aminotransferase 8 U/L (13-40); Chloride 108 mmol/L (98-107)
[2024-04-06 15:25] LABS: Glucose 92 mg/dL (74-106)
[~2024-04-09] VITALS: Ht 170.2 cm; Wt 103.0 kg
[2024-04-09] VITALS (8 sets, daily range): BP systolic 117–144; BP diastolic 79–92; PULSE 56–69; RESP 11–18; TEMP 97.8; O2SAT 95–99
[~2024-04-09 08:01] MED LIST changes: -TRIA37.587 PO
[2024-04-09] MEDS ORDERED: ANGIOMAX 250 MG VIAL IV ONE (08:43)
[2024-04-09] MEDS ORDERED: LIDOCAINE 2%HCL (LOCAL ANESTH.) INJ 20ML MDV ONE (08:44)
[2024-04-09] MEDS ORDERED: SODIUM CHL 0.9% 0 ML ONE (08:44)
[2024-04-09] MEDS ORDERED: MIDAZOLAM HCL 2MG/2ML 2ml VIAL (1mg/ml) ONE (08:44)
[2024-04-09] MEDS ORDERED: fentaNYL CITRATE 100 MCG/2 ML VL ONE (08:44)
[2024-04-09] MEDS ORDERED: IOHEXOL 350 MG/ML 100ML IJ ONE (09:31)
--- NOTE | 2024-04-23 10:48 | DVHOP ---
DATE OF SURGERY: 04/09/2024 PROCEDURES PERFORMED: * Selective left and right coronary angiography. * Ventriculogram. * Right iliac angiography. * Conscious sedation. DESCRIPTION OF PROCEDURE: The patient was prepped and draped under sterile condition. Xylocaine 1% used to anesthetize the right groin. Using Cook needle, right femoral artery was engaged with Seldinger technique, a 6-Ivorian sheath in the right femoral artery. Using 6-Ivorian JL4 catheter and 6-Ivorian JR4 catheter, selective left and right coronary angiographies were performed. Using 6-Ivorian pigtail catheter, ventriculogram was done. There were no complications. The patient tolerated the procedure well. Right femoral arteriotomy site was closed using the Angio-Seal device. RESULTS: * Left main was patent. * Left anterior descending artery previous site of stent placement with mild intimal irregularity but no flow-restrictive lesion. Moderate diffuse disease otherwise. * Circumflex artery previous site of angioplasty with moderate diffuse disease, otherwise no flow-restrictive lesion. * Right coronary artery nondominant vessel, less than 2 mm in size, is now chronically occluded. * Left ventricular function showed mild inferoapical hypokinesis with an estimated EF around 45%-50% with LVEDP of 18 mmHg with no gradient across the aortic valve. Thus, the patient with occluded RCA chronic. However, left ventricular function relatively preserved with an EF around 50% with an LVEDP of 18 mmHg with no gradient across the aortic valve. At this time, conservative medical management, aggressive risk modification. We will continue to follow the patient. Ariel Bhatt MD SA/NENITA TID: [id number] RECEIPT: [id number]
--- NOTE | 2024-04-23 10:50 | DVHHP ---
ADMIT DATE: 04/09/2024 HISTORY OF PRESENT ILLNESS: The patient is 63 years old, well known to me with history of coronary artery disease. The patient has undergone multivessel angioplasty, including angioplasty with stent placement of the LAD and angioplasty and stent placement of the circumflex. His RCA was chronically occluded when I did the angioplasty several years ago. At this time, during stress test, the patient was noted to have inferior wall reversibility and some mild decrease in left ventricular ejection fraction, scheduled to undergo surgery and because of the above presentation, it is felt that the patient should undergo coronary angiography prior to undergoing surgical intervention. Risks and benefits were explained to the patient. The patient understands and agrees. PERTINENT MEDICAL HISTORY: Significant for: * Coronary artery disease. * History of angioplasty with stent placement. * History of hypertension. * Hyperlipidemia. * Osteoarthritis. PHYSICAL EXAMINATION: VITAL SIGNS: Blood pressure is 142/80, pulse of 70, O2 saturation 98% on room air. HEENT: Pupils are reactive. Funduscopic exam shows no AV nicking, no exudates, no papilledema. Sclerae are anicteric. NECK: No JVD appreciated. Carotid pulses are 2+ symmetrical, normal upstroke and contour. Thyroid is within normal limits. Oral mucosa moist. Posterior pharynx without any exudate. PULMONARY: Clear to auscultation. Tympanic to percussion. No rhonchi, no egophony. CARDIOVASCULAR: Regular rate with a soft 2/6 systolic murmur along the left sternal border without any radiation. ABDOMEN: Soft, nontender. Normal bowel sounds. SKIN: Unremarkable. EXTREMITIES: No edema noted. 1+ pulses bilaterally. NEUROLOGIC: The patient is intact. ASSESSMENT AND PLAN: Thus, the patient is scheduled to undergo surgical intervention, but stress test shows abnormality and because of the above presentation, it is felt that the patient should undergo coronary angiography to define coronary anatomy. Ariel Bhatt MD SA/AKBAR TID: [id number] RECEIPT: [id number]
--- NOTE | 2024-04-23 11:20 | DVHDS ---
DATE OF DISCHARGE: 04/09/2024 DISCHARGE DIAGNOSES: The patient with coronary artery disease. The patient is scheduled to undergo surgery and during stress test, was noted to have reversibility in the inferior segment; therefore, the patient underwent coronary angiography. Angiogram showed patent LAD, patent left main, patent circumflex. Previous site of stent placements and the patient's RCA was chronically occluded. It is a nondominant vessel. At this time, the patient's EF is preserved. The patient may proceed with surgery. He is ASA 2 classification. Continue aggressive risk modification. Follow up with me in 1 week. Ariel Bhatt MD SA/POLINA/YOSHI TID: [id number] RECEIPT: [id number]
== END 2024-04-09 12:29 | disposition home or self-care (01) ==
LOC: CATH 08:01
PROVIDERS: ATTEND Internal Medicine Cardiovascular Disease
DX: R07.89 Other chest pain (principal); I25.10 Atherosclerotic heart disease of native coronary artery without angina pectoris; R06.02 Shortness of breath; E78.5 Hyperlipidemia, unspecified; E03.9 Hypothyroidism, unspecified; I10 Essential (primary) hypertension; E66.9 Obesity, unspecified; I47.19 Other supraventricular tachycardia; M19.90 Unspecified osteoarthritis, unspecified site; Z95.5 Presence of coronary angioplasty implant and graft; Z79.899 Other long term (current) drug therapy; Z98.890 Other specified postprocedural states; Z79.01 Long term (current) use of anticoagulants; Z79.82 Long term (current) use of aspirin
CPT/HCPCS: 0523T; 36415; 80053; 85025; 85610; 85730; 93458; C1760; C1894; J2250; J3010; Q9967; 99152

== ENCOUNTER → 2024-05-27 | Outpatient (CLI) | payer BC ==
--- NOTE | 2024-05-29 08:48 | DVHSR ---
APPROVED REPORT EXAM: Two-dimensional and M-mode echocardiogram with Doppler and color Doppler. DIMENSIONS LVDd4.7 (3.8-5.7cm)LA (2D)5.1 (1.9-4.0cm)Aortic Root3.6 (2.0-3.7cm) LVDs2.8 (2.5-4.0cm)LA (MM) (1.9-4.0cm)Aortic Cusp Exc2.0 (1.5-2.0cm) EF (%) 60.0 (55-70%)Rt. Atrium2.9 (1.9-4.0cm)Asc. Aorta3.4 cm IVSd1.0 (0.7-1.1cm)RV (D)4.0 (1.8-2.4cm) PWd0.8 (0.7-1.1cm) Mitral Valve MitralMitral Stenosis E wave0.74m/sMV Mean GR.mmHg A wave0.66m/sMV Peak GR.mmHg E/A ratio1.12D MVAcm2 DECEL [id number] 1/2 Timems Aortic Valve Aortic ValveAortic Stenosis V10.90m/Jadiel Mean GR.mmHg V21.39m/Jadiel Peak GR.8mmHg LVOT Diameter2.2 (1.8-2.4cm)Doppler AVA2.46cm2 Pulmonic Valve V21.15m/s Tricuspid Valve TR Velocity2.25m/s [id number] LEFT VENTRICLE The left ventricle is normal size. The left ventricle is normal in structure and function. The Ejection Fraction is within normal limits. The Ejection Fraction is 60-65%. RIGHT VENTRICLE The right ventricle is normal size. ATRIA The left atrium is mildly dilated. The right atrium size is normal. The interatrial septum is intact with no evidence for an atrial septal defect. MITRAL VALVE The mitral valve is normal in structure and function. Mitral regurgitation is trace. PULMONIC VALVE The pulmonic valve is not well visualized. TRICUSPID VALVE The tricuspid valve is grossly normal. There is trace to mild tricuspid regurgitation. AORTIC VALVE The aortic valve opens well. There is mild aortic regurgitation. GREAT VESSELS The aortic root is normal size. PERICARDIAL EFFUSION There is no pericardial effusion. Other Information Quality : Technically LimitedRhythm : Technically limited study due to recent hip surgery Conclusion EF >55% MILD AI
== END | disposition home or self-care (01) ==
LOC: Rad HDHVI 14:04
PROVIDERS: ATTEND Internal Medicine Cardiovascular Disease
DX: I08.2 Rheumatic disorders of both aortic and tricuspid valves (principal); I10 Essential (primary) hypertension
CPT/HCPCS: 93306

== ENCOUNTER 2024-08-31 15:40 | Outpatient (CLI) | payer BC ==
[2024-08-31 15:44] VITALS: BP 117/62; PULSE 75; RESP 18; O2SAT 97
[2024-08-31 16:04] VITALS: BP 102/62; PULSE 79; RESP 18; O2SAT 97
--- NOTE | 2024-08-31 18:28 | DVH ---
CTA Chest with intravenous contrast INDICATION: R/O PE COMPARISON: None TECHNIQUE: Multidetector spiral CTA of the chest was performed of the chest with intravenous contrast . PULMONARY ANGIOGRAPHY PROTOCOL was utilized using a bolus-tracking technique centered on the main p ulmonary artery. Axial, coronal and sagittal multiplanar and MIP reformats were performed. Radiation Dose : 1. Chest: CTDI volume is 19.22 mGy. Dose-length product is 714.85 mGy*cm The dose indicators for CT are the volume Computed Tomography (CT) Dose Index (CTDIvol) and the Dose Length Product (DLP), and are measured in units of mGy and mGy-cm, respectively. These indicators are not patient dose, but values generated from the CT scanner acquisition factors. The report includes radiation exposure data for exposures received during this examination. Findings: Pulmonary artery: No pulmonary embolism Lower neck: Normal thyroid. Lungs: No focal consolidation, pleural effusion or pneumothorax. Heart/Vascular Structures: Normal heart size. No pericardial effusion. Lymph Nodes: No adenopathy Pleura: No pleural effusion or significant pneumothorax. Musculoskeletal: No acute osseous abnormality. Soft tissues: Normal. Upper abdomen: Cholelithiasis. IMPRESSION: 1. No pulmonary embolism. 2. No acute thoracic finding.
== END 2024-08-31 17:00 | disposition home or self-care (01) ==
LOC: Rad HDHVI 15:40
PROVIDERS: ATTEND Internal Medicine Cardiovascular Disease
DX: K80.20 Calculus of gallbladder without cholecystitis without obstruction (principal); Z86.711 Personal history of pulmonary embolism
CPT/HCPCS: 71275; G0463; Q9967

== ENCOUNTER → 2024-09-16 | Outpatient (CLI) | payer BC | END | disposition home or self-care (01) | LOC: Rad HDHVI 14:30 | PROVIDERS: ATTEND Internal Medicine Cardiovascular Disease | DX: M76.891 Other specified enthesopathies of right lower limb, excluding foot (principal) | CPT/HCPCS: 93970 ==

== ENCOUNTER 2024-12-02 14:34 | Inpatient (IN) | payer BC ==
[~2024-12-02] VITALS: Ht 170.2 cm; Wt 96.3 kg
[2024-12-02 14:37] VITALS: BP 105/59; RESP 76; TEMP 97.6; O2SAT 95
[2024-12-02 15:08] LABS: Hematocrit 40.2 % (41.0-53.0); Hemoglobin 13.4 g/dL (13.5-17.5); Mean Corpuscular Hemoglobin 27.3 pg (28.0-32.0); Mean Corpuscular Volume 82.1 fL (80.0-100.0); Nucleated Red Blood Cells % 0.1 %
[2024-12-02 15:09] LABS: Chloride 105 mmol/L (98-107); Potassium 4.0 mmol/L (3.5-5.1); Sodium 140 mmol/L (136-145)
[2024-12-02 15:10] LABS: Anion Gap 11 (5-15); Carbon Dioxide 24 mmol/L (20-31)
[2024-12-02 15:11] LABS: Calcium 9.4 mg/dL (8.7-10.4)
[2024-12-02 15:16] LABS: BUN/Creatinine Ratio 14.8 (10.0-20.0); Blood Urea Nitrogen 20 mg/dL (9-23)
[2024-12-02 15:19] LABS: Glucose 112 mg/dL (74-106)
[2024-12-02 15:20] VITALS: PULSE 73
--- NOTE | 2024-12-02 15:57 | ED.PDOC ---
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 Spouse reports the the patient had a sudden onset of chest pain of 11/25/2024 and high blood pressure for three days, for which the patient was admitted at [facility]. All the symptoms subsided in the patient went home, setting an appointment with Dr. George which is their PCP. Patient saw Dr. George earlier today and after went to go eat at a restaurant with his when the patient had a sudden onset of left-sided chest pain, abdominal pain, N/V and headache. Denies any other symptoms at this time. Denies chills, fever, N/V/D, SOB. No other associated symptoms, modifiers, recent injuries or sick contacts present at this time. Chief Complaint: Chest Pain Time Seen by MD: 15:50 Reviewed Notes: Nurses Notes, Medications, Allergies Allergies: Coded Allergies: Morphine (Verified Allergy, Unknown, 12/02/24) Home Meds Reported Medications Hydrocodone-Acetaminophen (Hydrocodone Bitartrate/AC 10-325 mg) 1 Tab Tab, 1 TAB PO TIDPRN PRN for PAIN SCALE 7 THRU 10, TAB 04/06/24 Naproxen Sodium (Aleve) 220 Mg Cap, 220 MG PO HS for deteriorating disk(neck), CAP 10/07/23 Sacubitril-Valsartan (Entresto 49-51 mg) 1 Tab Tab, 1 TAB PO BID for HTN, TAB 10/29/22 Pantoprazole Sodium Sesquihydr (Protonix) 40 Mg Tab, 40 MG PO DAILY for GERD, #30 TAB 10/29/22 Aspirin (Aspir-Low) 81 Mg Tab, 81 MG PO DAILY, MG 10/29/22 Atorvastatin Calcium (ATORVASTATIN CALCIUM) 40 Mg Tab, 40 MG PO DAILY for ON H OLD PER MD, TAB 06/29/19 Clopidogrel Bisulfate (CLOPIDOGREL) 75 Mg Tab, 75 MG PO DAILY for S/P CARDIAC STENTS for 30 Days, MG 06/29/19 Clonidine Hydrochloride (Clonidine Hcl) 0.1 Mg Tab, 0.1 MG PO Q8HPRN PRN for SB P>160 for 30 Days, MG 06/12/17 Tamsulosin Hcl (Tamsulosin Hcl) 0.4 Mg Cap, 0.4 MG PO QPM for 30 Days, MG 06/12/17 Labetalol Hcl (Labetalol Hcl) 200 Mg Tab, 200 MG PO BID for HTN for 30 Days, MG 06/12/17 Information Source: Patient Mode of Arrival: Wheelchair Severity: Moderate Timing: Minutes Duration: Since onset, Minutes Prehospital treatment: None Past Medical History PAST MEDICAL HISTORY: CAD, Gallstones, High Lipids, HTN, MO Past Medical History (Other): 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 Surgical History: PTCA (X4 cardiac stents placed), Tonsillectomy Family History Family History: Reviewed,noncontributory to illness, Unknown Social History Smoker: Non-Smoker Alcohol: Denies ETOH Use Drugs: Denies Drug Use Lives In: Home Constitutional: denies: chills, diaphoresis, fatigue, fever, malaise, sweats, weakness, others EENTM: denies: blurred vision, double vision, ear bleeding, ear discharge, ear drainage, ear pain, ear ringing, eye pain, eye redness, hearing loss, mouth pain, mouth swelling, nasal discharge, nose bleeding, nose congestion, nose pain, photophobia, tearing, throat pain, throat swelling, voice changes, others Respiratory: denies: cough, hemoptysis, orthopnea, SOB at rest, shortness of breath, SOB with excertion, stridor, wheezing, others Cardiovascular: reports: chest pain; denies: dizzy spells, diaphoresis, Dyspnea on exertion, edema, irregular heart beat, left arm pain, lightheadedness, palpitations, PND, syncope, others Gastrointestinal: reports: abdominal pain, nausea, vomiting; denies: abdomen distended, blood streaked bowels, constipated, diarrhea, dysphagia, difficulty swallowing, hematemesis, melena, poor appetite, poor fluid intake, rectal bleeding, rectal pain, others Genitourinary: denies: burning, dysuria, flank pain, frequency, hematuria, incontinence, penile discharge, penile sore, pain, testicle pain, testicle swelling, urgency, others Neurological: reports: headache; denies: dizziness, fainting, left sided numbness, left sided weakness, numbness, paresthesia, pre-existing deficit, right sided numbness, right sided weakness, seizure, speech problems, tingling, tremors, weakness, others Musculoskeletal: denies: back pain, gout, joint pain, joint swelling, muscle pain, muscle stiffness, neck pain, others Integumetry: denies: bruises, change in color, change in hair/nails, dryness, laceration, lesions, lumps, rash, wounds, others Allergic/Immunocompromised: denies: Difficulty Healing, Frequent Infections, Hives, Itching, others Hematologic/Lymphatic: denies: anemia, blood clots, easy bleeding, easy bruising, swollen glands, others Endocrine: denies: excessive hunger, excessive sweating, excessive thirst, excessive urination, flushing, intolerance to cold, intolerance to heat, unexplained weight gain, unexplained weight loss, others Psychiatric: denies: anxiety, bipolar disorder, depression, hopeless, panic disorder, schizophrenia, sleepless, suicidal, others All Other Systems: Reviewed and Negative Physical Exam General Appearance: Moderate Distress, Normal HEENT: Normal ENT Inspection, Pharynx Normal, TMs Normal Neck: Full Range of Motion, Non-Tender, Normal, Normal Inspection Respiratory: Chest Non-Tender, Lungs Clear, No Accessory Muscle Use, No Respiratory Distress, Normal Breath Sounds Cardiovascular: No Edema, No JVD, No Murmur, No Gallop, Normal Peripheral Pulses, Regular Rate/Rhythm Breast Exam: Deferred Gastrointestinal: No Organomegaly, Non Tender, No Pulsatile Mass, Normal Bowel Sounds, Soft Genitalia: Deferred Pelvic: Deferred Rectal: Deferred Extremities: No calf tenderness, Normal capillary refill, Normal inspection, Normal range of motion, Non-tender, No pedal edema Musculoskeletal : Apperance: Normal Neurologic: Alert, microchip specialist II-XII nml as Tested, No Motor Deficits, Normal Affect, Normal Mood, No Sensory Deficits Cerebellar Function: NOT DONE Reflexes: NOT DONE Skin: Dry, Normal Color, Warm Peripheral Pulses: 3+ Radial (R), 3+ Radial (L) Lymphatic: No Adenopathy Was a procedure done? Was a procedure done?: No Differential Dx Considerations may include: Anemia Electrolyte imbalance X-Ray, Labs, Meds, VS Vital Signs Date Time Temp Pulse Resp B/P (MAP) Pulse Ox O2 Delivery O2 Flow Rate FiO2 12/02/24 15:20 73 12/02/24 14:38 71 12/02/24 14:37 97.6 16 76 105/59 95 97.6 Lab Test 12/02/24 15:49 12/02/24 14:43 Range/Units Troponin I High Sensitivity 6 5 </=54 ng/L White Blood Count 5.5 4.4-10.8 10^3/uL Red Blood Count 4.90 4.5-5.90 10^6/uL Hemoglobin 13.4 L 13.5-17.5 g/dL Hematocrit 40.2 L 41.0-53.0 % Mean Corpuscular Volume 82.1 80.0-100.0 fL Mean Corpuscular Hemoglobin 27.3 L 28.0-32.0 pg Mean Corpuscular Hemoglobin Concent 33.3 32.0-36.0 g/dL Red Cell Distribution Width 15.8 H 11.8-14.3 % Platelet Count 276 140-450 10^3/uL Mean Platelet Volume 7.6 6.9-10.8 fL Neutrophils (%) (Auto) 72.6 37.0-80.0 % Lymphocytes (%) (Auto) 17.6 10.0-50.0 % Monocytes (%) (Auto) 7.4 0.0-12.0 % Eosinophils (%) (Auto) 2.0 0.0-7.0 % Basophils (%) (Auto) 0.4 0.0-2.0 % Neutrophils # (Auto) 4.0 1.6-8.6 10 ^3/uL Lymphocytes # (Auto) 1.0 0.4-5.4 10 ^3/uL Monocytes # (Auto) 0.4 0-1.3 10 ^3/uL Eosinophils # (Auto) 0.1 0-0.8 10 ^3/uL Basophils # (Auto) 0 0-0.2 10 ^3/uL Nucleated Red Blood Cells 0.1 % Sodium Level 140 136-145 mmol/L Potassium Level 4.0 3.5-5.1 mmol/L Chloride Level 105 98-107 mmol/L Carbon Dioxide Level 24 20-31 mmol/L Anion Gap 11 5-15 Blood Urea Nitrogen 20 9-23 mg/dL Creatinine 1.35 H 0.700-1.30 mg/dL Glomerular Filtration Rate Calc 59 >90 mL/min BUN/Creatinine Ratio 14.8 10.0-20.0 Serum Glucose 112 H 74-106 mg/dL Calcium Level 9.4 8.7-10.4 mg/dL Patient alert. Complaining of chest abdominal pain. Vitals stable. Answering questions. CT scan of the abdomen does reveal gallstones. WBC within normal limits. EKG reviewed does not show any acute changes. Troponin within normal limits. Possibly needs a nuclear scan. Explained to the family that he will be admitted. Continue monitoring. Time of 1ST Reevaluation: 17:36 Reevaluation 1ST: Unchanged Patient Education/Counseling: Diagnosis, Treatment, Prognosis Family Education/Counseling: Diagnosis, Treatment, Prognosis SEPSIS Sepsis Screen Date sepsis recognized/suspect: Dec 02, 2024 Time Sepsis recognized/suspect: 1436 Recent Procedure: No On Antibiotic Therapy: No Respiratory Rate >20: No Heart Rate >90: No Temp<36 C (96.8 F) or >38.3 C: No SBP <90 or MAP <65 mmHG: No New Acute Mental Status Change: No Is the patient on CPAP, BIPAP,: No Physician Orders Electrocardigram (12/02/24 14:37) Electrocardigram (12/02/24 15:37) Electrocardigram (12/02/24 17:37) Urinalysis (12/02/24 14:37) Ct Ab Pel Wo Con-No Oral Or Iv (12/02/24 15:36) Vital Signs Date Time Temp Pulse Resp B/P (MAP) Pulse Ox O2 Delivery O2 Flow Rate FiO2 12/02/24 15:20 73 12/02/24 14:38 71 12/02/24 14:37 97.6 16 76 105/59 95 97.6 Laboratory Tests Test 12/02/24 14:43 White Blood Count 5.5 10^3/uL (4.4-10.8) Departure 1 Departure Time of Disposition: 17:38 Impression: Primary Impression: Chest pain of unknown etiology Additional Impression: Gallstones Disposition: ADMITTED INPATIENT Admit to: Med Surg Condition: Guarded Critical Care Note Critical Care Time?: Yes (90 min-critical care time only) Stability Stability form required: No Heart Score Heart Score: Heart Score Response (Comments) Value History Slightly Suspicious 0 EKG Normal 0 Age 45-64 1 Risk Factors >3 or Hx ASHD 2 Troponin Normal limit 0 Total 3 I personally scribed for MICHAEL SNELL MD ([email or web address]) on 12/02/24 at 15:57. Electronically submitted by Carl Sorensen ([email or web address]). MICHAEL SNELL MD Dec 02, 2024 15:57
--- NOTE | 2024-12-02 16:45 | DVH ---
Indication: colitis Technique: CT axial images of the abdomen and pelvis are obtained without contrast. Coronal and sagit mike reformats were obtained. Radiation Dose Information: CTDI volume is 25 mGy. Dose-length product is 1300 mGy*cm [facility]: [facility] FINDINGS: There is limited interpretation of the abdomen and pelvis without administration of intravenous contr ast. Lung bases demonstrate no pleural effusion Coronary artery calcification disease. Adrenal glands, spleen, pancreas and liver unremarkable in shape. Cholelithiasis. Kidneys demonstrate no hydronephrosis. Nonobstructing left renal calculus measuring 2 mm. Gastric distention. Small bowel loops are normal in caliber. Colonic diverticula. Moderate volume stool throughout the colon. Normal appendix. Mild bowel wall th ickening of the rectum. Abdominal aortic atherosclerotic disease. Bladder distended. Prostate enlarged measuring 6.9 cm white sversely. No free pelvic fluid. Small fat containing left inguinal hernia. No inguinal lymphadenopath y. Right hip arthroplasty. [id number] bilateral sacroiliac degenerative joint disease. Mild-to-mod erate thoracolumbar degenerative disc disease. 2.8 x 1.6 cm fat containing paraumbilical hernia. IMPRESSION: Limited evaluation without contrast. Mild bowel wall thickening of the rectum may represent proctocolitis. Moderate volume stool in the colon. Scattered colonic diverticula. Prostatomegaly. Correlate with PSA levels. Cholelithiasis. Nonobstructing left renal calculus. Other findings as described.
--- NOTE | 2024-12-02 17:10 | DVHHPRES ---
History of Present Illness Resident Creating Document: ISACC CLARK History of Present Illness The patient is a 64-year-old male with a history of coronary artery disease, gallstones, hyperlipidemia, hypertension, myocardial infarction, and degenerative joint disease of the cervical spine. He presented to [facility] Emergency Department with complaints of chest pain, abdominal pain, and headache. He described the chest pain as a left-sided retrosternal burning sensation that worsens with exertion and improves with rest. The pain radiates to his neck and right arm. Last Saturday, the patient was admitted to [facility] for a three-day episode of severe vomiting with blood. At that time, his blood pressure was 166/111 mmHg. A V/Q scan was negative for pulmonary embolism. CTA of the neck revealed a right carotid stent. Echocardiogram showed an ejection fraction of 60% with normal chamber sizes. Chest X-ray was unremarkable. His symptoms resolved, and he was discharged with a follow-up appointment scheduled with his primary care physician, Dr. George. Earlier today, the patient saw Dr. George and subsequently went to a restaurant with his . While dining, he experienced a sudden onset of left-sided chest pain, associated with abdominal pain, nausea, vomiting, and headache. He currently denies chills, fever, diarrhea, shortness of breath, or other associated symptoms. He also denies any recent injuries, sick contacts, or symptom modifiers. Past Medical History CAD, Gallstones, High Lipids, HTN, MS, DJD on neck Past Surgical History PTCA (X4 cardiac stents placed), Tonsillectomy Smoke: No ALCOHOL: none Drugs: None Lives: with Family (RN) Review of Systems Review of Systems Eyes: No Pain, No Vision change, No Conjunctivae inflammation, No Eyelid inflammation, No Other, No Redness ENT: No Ear pain, No Ear discharge, No Nose pain, No Nose discharge, No Nose congestion, No Mouth pain, No Mouth swelling, No Throat pain, No Throat swelling, No Other Cardiovascular: No Chest Pain, No Palpitations, No Orthopnea, No Paroxysmal No Dyspnea, No Edema, No Lt Headedness, No Other Respiratory: No Cough, No Dry, No Shortness of breath, No SOB with exertion, No Wheezing, No Hemoptysis, No Pleuritic Pain, No Sputum, No Other Gastrointestinal: No Nausea, No Vomiting, No Abdominal Pain, No Diarrhea, No Constipation, No Melena, No Hematochezia, No Other Genitourinary: No Dysuria, No Frequency, No Incontinence, No Hematuria, No Retention, No Other Musculoskeletal: No other, No neck pain, No shoulder pain, No arm pain, No back pain, No hand pain, No leg pain, No foot pain Skin: No Rash, No Lesions, No Jaundice, No Bruising, No Other Cardiovascular: Chest Pain Gastrointestinal: Nausea, Vomiting, Abdominal Pain Allergies: Coded Allergies: Morphine (Verified Allergy, Unknown, 12/02/24) Exam Vital Signs Vital Signs Date Time Temp Pulse Resp B/P (MAP) Pulse Ox O2 Delivery O2 Flow Rate FiO2 12/02/24 15:20 73 12/02/24 14:37 97.6 76 105/59 95 97.6 Exam General Appearance: Cooperative. Well developed. Well nourished. NAD Head Exam: Normal inspection Neck Exam: Normal inspection. Non-tender. Normal alignment Pulmonary/Respiratory: Chest non-tender. Clear bilateral breath sounds, no crackles, no wheezing. Cardiovascular/Chest: Regular rate and rhythm. No murmurs. No JVD. Peripheral Pulses: 2+ Radial (R). 2+ Radial (L). 2+ Pedal (R). 2+ Pedal (L) Abdominal Exam: Normal bowel sounds. Soft. normal abdomen, no visible veins, Nontender. No hepatospenomegaly. No masses Ankle Exam: Negative ankle edema Lower extremities: +1 lower extremity pitting edema Neuro/Mental Status: A&O x4. Coherent. Thoughts/Psych: Normal thought pattern. Appropriate mood and affect. Good judgement and insight Skin Exam: Normal inspection. Normal color. Warm. Dry Labs/Xrays Labs Test 12/02/24 15:49 12/02/24 14:43 Range/Units Troponin I High Sensitivity 6 </=54 ng/L White Blood Count 5.5 4.4-10.8 10^3/uL Red Blood Count 4.90 4.5-5.90 10^6/uL Hemoglobin 13.4 L 13.5-17.5 g/dL Hematocrit 40.2 L 41.0-53.0 % Mean Corpuscular Volume 82.1 80.0-100.0 fL Mean Corpuscular Hemoglobin 27.3 L 28.0-32.0 pg Mean Corpuscular Hemoglobin Concent 33.3 32.0-36.0 g/dL Red Cell Distribution Width 15.8 H 11.8-14.3 % Platelet Count 276 140-450 10^3/uL Mean Platelet Volume 7.6 6.9-10.8 fL Neutrophils (%) (Auto) 72.6 37.0-80.0 % Lymphocytes (%) (Auto) 17.6 10.0-50.0 % Monocytes (%) (Auto) 7.4 0.0-12.0 % Eosinophils (%) (Auto) 2.0 0.0-7.0 % Basophils (%) (Auto) 0.4 0.0-2.0 % Neutrophils # (Auto) 4.0 1.6-8.6 10 ^3/uL Lymphocytes # (Auto) 1.0 0.4-5.4 10 ^3/uL Monocytes # (Auto) 0.4 0-1.3 10 ^3/uL Eosinophils # (Auto) 0.1 0-0.8 10 ^3/uL Basophils # (Auto) 0 0-0.2 10 ^3/uL Nucleated Red Blood Cells 0.1 % Sodium Level 140 136-145 mmol/L Potassium Level 4.0 3.5-5.1 mmol/L Chloride Level 105 98-107 mmol/L Carbon Dioxide Level 24 20-31 mmol/L Anion Gap 11 5-15 Blood Urea Nitrogen 20 9-23 mg/dL Creatinine 1.35 H 0.700-1.30 mg/dL Glomerular Filtration Rate Calc 59 >90 mL/min BUN/Creatinine Ratio 14.8 10.0-20.0 Serum Glucose 112 H 74-106 mg/dL Calcium Level 9.4 8.7-10.4 mg/dL SEPSIS Sepsis Screen Date sepsis recognized/suspect: Dec 02, 2024 Time Sepsis recognized/suspect: 1437 Recent Procedure: No On Antibiotic Therapy: No Respiratory Rate >20: No Heart Rate >90: No Temp<36 C (96.8 F) or >38.3 C: No SBP <90 or MAP <65 mmHG: No New Acute Mental Status Change: No Is the patient on CPAP, BIPAP,: No Physician Orders Electrocardigram (12/02/24 14:37) Electrocardigram (12/02/24 15:37) Electrocardigram (12/02/24 17:37) Urinalysis (12/02/24 14:37) Troponin-I Hs (12/02/24 17:37) Ct Ab Pel Wo Con-No Oral Or Iv (12/02/24 15:36) Vital Signs Date Time Temp Pulse Resp B/P (MAP) Pulse Ox O2 Delivery O2 Flow Rate FiO2 12/02/24 15:20 73 12/02/24 14:38 71 12/02/24 14:37 97.6 16 76 105/59 95 97.6 Laboratory Tests Test 12/02/24 14:43 White Blood Count 5.5 10^3/uL (4.4-10.8) Assessment/Plan Assessment/Plan # Acute intractable abdominal pain possible due to acute cholecystitis # Proctocolitis # Cholelithiasis # Nonobstructing left renal calculus # History of gallstones - Abdomen/Pelvis CT: Mild bowel wall thickening of the rectum may represent proctocolitis. Moderate volume stool in the colon. Scattered colonic diverticula. Prostatomegaly. Cholelithiasis. Nonobstructing left renal calculus. - Ceftriaxone 50 ml - Metronidazole 100ml - IV NS - Zofran # Acute intractable chest pain # CAD s/p PTCA (x4 cardiac stents placed) # History of MS - Nitroglycerin 0.4 mg # Hypertension - Labetalol 10 mg # Hyperlipidemia PUD prophylaxis: protonix 40mg DVT prophylaxis: Lovenox 40mg Goals of care: Full code, discussed for >16 minutes on 12/02/24 Plan discussed with patient Plan discussed with Dr. Ness Plan discussed with: Patient, Spouse Date of Service: Dec 02, 2024 Billing Provider: ROBIN NESS MD Common Visit Codes: 32578-[id number] INP/OBS CARE (HIGH) Secondary Visit Codes: 47784-JMTPPKCU CARE PLAN 30 MINUTES ISACC CLARK Dec 02, 2024 17:10 ROBIN NESS MD Dec 03, 2024 22:35
[2024-12-02] MEDS ORDERED: NITROGLYCERIN 0.4 MG SL TAB SL PRN (18:00)
[2024-12-02] MEDS ORDERED: MORPHINE SULFATE INJ 2 MG/ml SYRG IV PRN (18:00)
[2024-12-02] MEDS ORDERED: ONDANSETRON HCL 4 MG/2 ML VIAL IM PRN (18:00)
[2024-12-02] MEDS ORDERED: ENOXAPARIN SOD 40 MG/0.4 ML SYRINGE SC ONE (18:00)
[2024-12-02] MEDS ORDERED: SODIUM CHLORIDE 0.9% 500 ML IV ONE (18:00)
[2024-12-02] MEDS ORDERED: PANTOPRAZOLE 40 MG/10 ML VIAL INJ IV ONE (18:00)
[2024-12-02] MEDS ORDERED: LABETALOL HCL 20 MG/4 ML VL IV PRN (18:00)
--- NOTE | 2024-12-02 18:31 | DVH ---
CHEST RADIOGRAPH Indication: SOB Technique: Single frontal view of the chest was obtained Comparison: None FINDINGS: Lines and Tubes: None Lungs: No focal consolidation. Pleura: No effusion. No pneumothorax. Cardiomediastinal contours: Unremarkable Bones: No acute osseous abnormality. IMPRESSION: 1. No acute cardiopulmonary disease.
--- NOTE | 2024-12-02 20:13 | ECG ---
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
[2024-12-03] MEDS ORDERED: ENOXAPARIN SOD 40 MG/0.4 ML SYRINGE SC SCH (10:00)
[2024-12-03] MEDS ORDERED: PANTOPRAZOLE 40 MG/10 ML VIAL INJ IV SCH (10:00)
--- NOTE | 2024-12-03 14:02 | ECG ---
[facility] Test Date: 2024-12-02 Test Time: 14:35:10 Pat Name: RAQUEL HARMON Department: [facility] ED Room: [address] [place] [address] Gender: M Ent Physician: bel : [id number] Requested By: MICHAEL SNELL Order Number: [id number] Reading MD: Tong Delvalle Measurements Intervals [place] Rate: 71 P: 25 VT: 172 QRS: -14 QRSD: 92 T: -5 QT: 392 QTc: 426 Interpretive Statements Sinus rhythm Borderline T wave abnormalities Electronically Signed On 12-05-2024 18:41:16 PDT by Tong Delvalle Please click the below link to view image of tracing.
== END 2024-12-02 19:46 | disposition left against medical advice (07) | DRG 446 ==
LOC: ER 14:34 → OVERFLOW 17:57
PROVIDERS: ADMIT Internal Medicine; ATTEND Internal Medicine
DX: K80.00 Calculus of gallbladder with acute cholecystitis without obstruction (principal); I25.10 Atherosclerotic heart disease of native coronary artery without angina pectoris; I10 Essential (primary) hypertension; Z53.29 Procedure and treatment not carried out because of patient's decision for other reasons; N20.0 Calculus of kidney; E78.5 Hyperlipidemia, unspecified; I25.2 Old myocardial infarction; Z88.5 Allergy status to narcotic agent; Z95.5 Presence of coronary angioplasty implant and graft
CPT/HCPCS: 36415; 71045; 74176; 80048; 84484; 85025; 87040; 93005; 99291; 99292; G0378

== ENCOUNTER 2024-12-21 12:29 | Outpatient (CLI) | payer BC ==
[2024-12-21 12:30] VITALS: BP 120/66; PULSE 75; RESP 16; O2SAT 96
[2024-12-21 12:45] VITALS: BP 114/60; PULSE 75; RESP 16; O2SAT 96
[2024-12-21] MEDS ORDERED: RANO500T3 PO (14:49)
[2024-12-21] MEDS ORDERED: TRIA37.586 PO (14:49)
[2024-12-21] MEDS ORDERED: EZET10TA22 PO (14:49)
[2024-12-21] MEDS ORDERED: APIX5TAB PO (14:49)
== END 2024-12-21 17:00 | disposition home or self-care (01) ==
LOC: CHF HDHVI 12:29
PROVIDERS: ATTEND Internal Medicine Cardiovascular Disease
DX: Z01.810 Encounter for preprocedural cardiovascular examination (principal); R07.89 Other chest pain
CPT/HCPCS: 93005; G0463

== ENCOUNTER 2024-12-24 06:39 | Day surgery (SDC) | payer BC ==
[2024-12-21 14:25] LABS: Hematocrit 37.4 % (41.0-53.0); Hemoglobin 12.8 g/dL (13.5-17.5); Mean Corpuscular Hemoglobin 27.6 pg (28.0-32.0); Mean Corpuscular Volume 80.7 fL (80.0-100.0); Nucleated Red Blood Cells % 0.1 %
[2024-12-21 14:35] LABS: INR 1.02 (0.9-1.15); Partial Thromboplastin Time 28.9 SEC (24.5-34.5); Prothrombin Time 10.8 sec (9.3-11.8)
[2024-12-21 16:13] LABS: Chloride 104 mmol/L (98-107); Potassium 3.8 mmol/L (3.5-5.1); Sodium 141 mmol/L (136-145)
[2024-12-21 16:14] LABS: Anion Gap 9 (5-15); Calcium 9.5 mg/dL (8.7-10.4); Carbon Dioxide 28 mmol/L (20-31)
[2024-12-21 16:19] LABS: BUN/Creatinine Ratio 10.8 (10.0-20.0); Blood Urea Nitrogen 16 mg/dL (9-23); Glucose 96 mg/dL (74-106)
[~2024-12-24] VITALS: Ht 154.9 cm; Wt 98.4 kg
[~2024-12-24 06:39] MED LIST changes: +APIX5TAB PO; -ASPI-543 PO; -ATOR40TA52 PO; +EZET10TA22 PO; -NAPR220C PO; +RANO500T3 PO; +TRIA37.586 PO
[2024-12-24] MEDS ORDERED: SODIUM CHL 0.9% 50 ML ONE (08:18)
[2024-12-24] MEDS ORDERED: LIDOCAINE 2%HCL (LOCAL ANESTH.) INJ 20ML MDV ONE (08:18)
[2024-12-24] MEDS ORDERED: fentaNYL CITRATE 100 MCG/2 ML VL ONE (08:18)
[2024-12-24] MEDS ORDERED: MIDAZOLAM HCL 2MG/2ML 2ml VIAL (1mg/ml) ONE (08:18)
[2024-12-24] MEDS ORDERED: ANGIOMAX 250 MG VIAL IV ONE (08:18)
[2024-12-24] MEDS ORDERED: IOHEXOL 350 MG/ML 100ML IJ ONE (08:19)
[2024-12-24] MEDS ORDERED: GLYCOPYRROLATE 0.2 MG/ML 1ML VIAL ONE (08:24)
[2024-12-24] MEDS ORDERED: PHENYLEPHRINE HCL 10 MG/ML VL ONE (08:24)
[2024-12-24] MEDS ORDERED: IODIXANOL 320MG/ML 100ML BTL IV ONE (08:57)
[2024-12-24] MEDS ORDERED: NITROGLYCERIN 0.4MG/DOSE SPRAY 4.9GM ONE (09:15)
[2024-12-24] MEDS ORDERED: CLOPIDOGREL BISULFATE 75 MG TAB ONE (09:16)
--- NOTE | 2024-12-24 09:34 | DVHOP ---
DATE OF SURGERY: 12/24/2024 PROCEDURES PERFORMED: * Selective left and right carotid angiography. * Selective left and right cerebral angiography. * Left and right subclavian and brachiocephalic angiography. DESCRIPTION OF PROCEDURE: The patient was prepped and draped in sterile conditions. A 1% Xylocaine was used to anesthetize the right groin. The right femoral artery was engaged using the Seldinger technique. A 6-Omani sheath was introduced into the right femoral artery. Using a 6-Omani JR4 diagnostic catheter, selective left and right subclavian, carotid, and cerebral circulation were then imaged. There were no complications. The patient tolerated the procedure well. RESULTS: * Left and right common carotid without any flow-restrictive lesion. * Left and right internal carotid mild intimal irregularity; however, no flow-restrictive lesion. * Circumflex artery, no flow-restrictive lesion. CONCLUSION: Thus, the patient although has mild intimal irregularity in both arteries of the right internal and left internal arteries, with no significant narrowing noted, antiplatelet therapy should be continued, but no catheter-based or surgical intervention is warranted. Ariel Bhatt MD SA/SHAHIDA TID: [id number] RECEIPT: [id number]
--- NOTE | 2024-12-24 09:43 | DVHDS ---
DATE OF DISCHARGE: 12/24/2024 DISCHARGE DIAGNOSIS: The patient with coronary artery disease ____ underwent successful angioplasty, stent placement of the ramus branch x 2 with thrombectomy and FFR performed. In the meantime, the patient is clinically stable. Carotid angiography failed to demonstrate a significant lesion. The patient has small vessel disease terminal branch of one of the terminal branches of circumflex artery subtotally occluded. The right coronary artery was a nondominant vessel less than 2 mm in size was also occluded chronically. At this time, continue aggressive risk modification. There are no catheter-based surgical interventions any further indicated at this point. We will continue to follow patient. Ariel Bhatt MD SA/NENITA/MARTÍNEZ TID: [id number] RECEIPT: [id number]
--- NOTE | 2024-12-24 09:48 | DVHOP ---
DATE OF SURGERY: 12/24/2024 PROCEDURES PERFORMED: * Selective left and right coronary angiography. * Ventriculogram. * Right iliac angiography. * Right heart catheterization. * FFR of the ramus branch. * Thrombectomy with shockwave catheter of the ramus branch. * Conscious sedation was given. * Right heart catheterization. Sabin-Andrea catheter was done. Risks and benefits were explained to the patient. The patient understands and agrees. DESCRIPTION OF PROCEDURE: The patient was prepped and draped in a sterile condition. A 1% Xylocaine used to anesthetize the right groin. Using a Cook needle, the right femoral artery was engaged with Seldinger technique. A 6-Burundian sheath in the right femoral artery. Similarly, a 6-Burundian sheath was introduced in the right femoral vein. Using a 6-Burundian balloon tipped thermodilution catheter, right-sided pressure tracings were obtained. Using 6-Burundian JL4 catheter and 6-Burundian JR4 catheter, selective left and right coronary angiographies were performed. Using a 6-Burundian Pigtail catheter, ventriculogram was done. Then, the 6-Burundian diagnostic system was exchanged for the interventional system using a 6-Burundian XB 3.5 guide catheter. The left main was cannulated. Using a run-through wire, the ramus branch was then crossed. It was then thrombectomized and balloon angioplastied using a Shockwave balloon 2.0 x 13 mm Shockwave balloon in the distal aspect of the ramus and in the proximal aspect of the ramus. Following that, a 2.5 x 18 mm [place] stent was deployed in the distal ramus and a 2.5 x 15 mm ramus was done in the proximal segment of the ramus. There were no complications. The patient tolerated the procedure well. RESULTS: * Right heart catheterization showed RA pressure of 8, RV pressure of 28/8, PA pressure of 28/14, and capillary wedge pressure of 14. Left ventricular diastolic pressure was 14-15 mmHg with no gradient across the aortic valve. Left ventricular function was preserved with an estimated EF of 55%. Selective left and right coronary angiography revealed: * Left main patent. * Left anterior descending artery, moderate diffuse disease with no discrete lesions were noted. * Circumflex artery, large dominant vessel greater than 4.5 mm in size with no flow restrictive lesion. * Ramus branch had a 90-95% narrowing with an FFR of 0.72. He underwent angioplasty with stent placement and thrombectomy of the lesion because of calcification and bifurcation with thrombectomy catheter. Shockwave with 2 stents placed, one distally 2.5 x 18, and more proximally 2.5 x 15, now with less than 10% residual stenosis. Good EUNICE grade 3 flow was noted. * Right coronary artery small vessel less than 1.5 mm in size was occluded ostially. One of the caveat is the patient's circumflex artery, large caliber vessel, terminally ends in 3 small branches, less than 2 mm in size and the first branch of the 3 terminal branches had a subtotal narrowing. It was too small to cross with the wire and high risk for perforation or any kind of angioplasty, thereby, medical management will be implemented. CONCLUSION: * Patient with high-grade narrowing of the ramus branch, underwent thrombectomy with 2 stents placed, one distally and one proximally, 2.5 x 18 and 2.5 x 15 respectively with less than 10% residual stenosis. * Left main without any flow restrictive lesion. * Left anterior descending artery, moderate diffuse disease without any flow restrictive lesion. * Circumflex artery, large dominant vessel greater than 4.5 mm in size from the proximal to distal segment. However, the terminal branches of the circumflex artery, small caliber vessel, each measuring about 1.5 mm in size. The first branch had a 99% subtotal narrowing, too small to cross, not worth the risk of failure or perforation. * Right coronary artery is chronically occluded. It is small caliber, less than 1.5 mm in size. At this time, aggressive risk modification should be implemented. Aggressive antihypertensive therapy. No further intervention is anticipated. We will continue to follow patient. Ariel Bhatt MD SA/EKIngrid TID: [id number] RECEIPT: [id number]
--- NOTE | 2024-12-24 10:05 | DVHHP ---
ADMIT DATE: 12/24/2024 HISTORY OF PRESENT ILLNESS: The patient who is well known to me, 64-year-old with history of hypertension, hyperlipidemia, history of coronary artery disease, now increasing symptoms of chest pain. Even with minimal exertion, the patient becomes symptomatic. Because of the above presentation, even though stress test does not show any significant lesion, it is felt that the patient should undergo coronary angiography to define coronary anatomy. Stress test did show some apical defect, which is reversible. It was small, but because of the patient's symptoms, it was found that the patient should undergo the above mentioned procedure. Furthermore, he also has a carotid bruit and is having some TIA-like symptoms and being diabetic, it is felt that the patient should have carotid angiography as well. Risks and benefits were explained to the patient. The patient understands and agrees. In the meantime, the patient denies any fever, chills, melena, hematochezia, hematemesis, hemoptysis, or hematuria. Denies any abdominal discomfort. No history of tobacco or alcohol use. Denies any history of any recent trauma. No history of diarrhea, inflammatory bowel disease, or irritable bowel syndrome. Denies any kidney stones. No history of any kidney abnormality, but being diabetic. His creatinine is slightly elevated at 1.4 with neuropathy and vasculopathy. PHYSICAL EXAMINATION: VITAL SIGNS: Blood pressure is 132/82, pulse 64, O2 saturation 98% on room. HEENT: Pupils reactive. Funduscopic exam is benign. Sclerae anicteric. No papilledema noted. No evidence of any AV nicking or exudates noted. Extraocular muscles are intact. Tympanic membranes are negative. Oral mucosa moist. NECK: No JVD appreciated. Carotid pulses are 2+ symmetrical. Normal upstroke and contour. PULMONARY: Clear to auscultation. Tympanic to percussion. CARDIOVASCULAR: Regular rate without S3, without S4. PMI is not displaced. ABDOMEN: Soft, nontender. Normal bowel sounds. Stool guaiac is negative. No epigastric tenderness. No suprapubic tenderness. No CVA tenderness. NEUROLOGIC: The patient is intact. Peripheral pulses are 2+ and symmetrical. ASSESSMENT AND PLAN: Thus, the patient with severe shortness of breath, chest pain with even minimal exertion. He is unable to exercise and therefore it is felt that the patient should undergo coronary angiography. TIA-like symptoms, so carotid angiography will also be performed. Right and left heart catheter, rule out any kind of diastolic systolic heart failure because of ongoing shortness of breath that patient is experiencing. We will continue to follow the patient. Ariel Bhatt MD SA/SUZI TID: [id number] RECEIPT: [id number]
== END 2024-12-24 15:15 | disposition home or self-care (01) ==
LOC: CATH 06:39
PROVIDERS: ATTEND Internal Medicine Cardiovascular Disease
DX: R07.89 Other chest pain (principal); I25.10 Atherosclerotic heart disease of native coronary artery without angina pectoris; I25.82 Chronic total occlusion of coronary artery; R06.02 Shortness of breath; R01.1 Cardiac murmur, unspecified; I10 Essential (primary) hypertension; E11.40 Type 2 diabetes mellitus with diabetic neuropathy, unspecified; E78.5 Hyperlipidemia, unspecified; Z95.5 Presence of coronary angioplasty implant and graft; Z88.5 Allergy status to narcotic agent
CPT/HCPCS: 0523T; 36222; 36225; 36415; 80048; 85025; 85610; 85730; 92972; 92973; 93460; C1760; C1761; C1769; C1874; C1887; C1894; C9600; J0583; J1644; J2250; J3010; J7030; Q9967; 99152; 99153